=== PATIENT | female | born 1935 | race Caucasian/White ===

== ENCOUNTER 2017-02-18 08:14 | Outpatient (CLI) | payer MEDICARE, OTHER ==
[2017-02-18 12:24] LABS: #Basophils 0.1 thou/uL (0.0-0.2); #Eosinphils 0.7 thou/uL (0.0-0.7); #Lymphocytes 2.2 thou/uL (1.20-3.40); #Monocytes 0.6 thou/uL (0.11-0.59); %Lymphocytes 28.8 % (21.0-51.0); %Monocytes 7.5 % (0.0-10.0); %Neutrophils 52.8 % (42.0-75.0); Hemoglobin 13.7 g/dL (12.0-16.0); Mean Corpuscular HGB CONC 32.1 g/dL (32.0-36.0); Mean Corpuscular Hemoglobin 28.1 pg (27.0-31.0); Mean Corpuscular Volume 87.5 fl (81.0-99.0); Mean Platelet Volume 6.1 fL (7.4-10.4); Platelet Count 313 thou/uL (130-400); Red Blood Cell (RBC) Count 4.87 mill/uL (4.20-5.40); White Blood Cell (WBC) Count 7.6 thou/uL (4.8-10.8)
[2017-02-18 12:45] LABS: ALT (SGPT) 8 U/L (0-55); AST (SGOT) 16 U/L (5-34); Albumin 4.1 g/dL (3.4-4.8); Alkaline Phosphatase 88 U/L (40-150); Anion Gap 14 mmol/L (10-20); BUN (Urea Nitrogen) 19 mg/dL (9.8-20.1); Bilirubin, Direct 0.2 mg/dL (0.1-0.3); Bilirubin, Total 0.5 mg/dL (0.2-1.2); Calc. Creatinine Clearance 0 mL/min (70-130); Calcium 9.7 mg/dL (7.8-10.44); Carbon Dioxide 26 mmol/L (23-31); Chloride 104 mmol/L (98-107); Cholesterol 145 mg/dL (< 200 Desired); Estimated GFR-MDRD 32; Glucose 92 mg/dL (83-110); HDL Cholesterol 48 mg/dL (>60 Neg Risk); LDL Cholesterol, Calculated 67 mg/dL; Potassium 4.8 mmol/L (3.5-5.1); Protein, Total 6.8 g/dL (5.8-8.1); Sodium 139 mmol/L (136-145); Triglycerides 150 mg/dL (Less than 150)
[2017-02-18 12:46] LABS: Hemoglobin A1c 5.3 % (4.0-6.0)
== END 2017-02-18 08:15 ==
LOC: NAVSJIPCSP 08:14
PROVIDERS: ATTEND Nurse Practitioner Family
DX: N28.9 Disorder of kidney and ureter, unspecified (principal); I10 Essential (primary) hypertension; Z86.39 Personal history of other endocrine, nutritional and metabolic disease; Z79.899 Other long term (current) drug therapy
CPT/HCPCS: 36415; 80048; 80061; 80076; 83036; 84443; 85025

== ENCOUNTER 2017-04-29 11:23 | Outpatient (CLI) | payer MEDICARE, OTHER ==
[2017-04-29 13:42] LABS: Hemoglobin 14.1 g/dL (12.0-16.0)
[2017-04-29 13:52] LABS: Anion Gap 18 mmol/L (10-20); BUN (Urea Nitrogen) 23 mg/dL (9.8-20.1); Calc. Creatinine Clearance 0 mL/min (70-130); Calcium 9.9 mg/dL (7.8-10.44); Carbon Dioxide 25 mmol/L (23-31); Chloride 100 mmol/L (98-107); Estimated GFR-MDRD 32; Glucose 81 mg/dL (83-110); Potassium 4.8 mmol/L (3.5-5.1); Sodium 138 mmol/L (136-145)
[2017-04-30 17:59] LABS: Iron 70 ug/dL (50-170); Iron Binding Capacity, Total 311 mcg/dL (265-497)
== END 2017-04-29 11:24 | disposition home or self-care (01) ==
LOC: NAVSJIPCSP 11:23
PROVIDERS: ATTEND Internal Medicine Nephrology
DX: D63.1 Anemia in chronic kidney disease (principal); R53.1 Weakness; R53.82 Chronic fatigue, unspecified; N18.3 Chronic kidney disease, stage 3 (moderate)
CPT/HCPCS: 36415; 80048; 83540; 83550; 85014; 85018

== ENCOUNTER 2017-07-08 09:11 | Outpatient (CLI) | payer MEDICARE, OTHER ==
[2017-07-08 14:15] LABS: #Basophils 0.2 thou/uL (0.0-0.2); #Eosinphils 0.7 thou/uL (0.0-0.7); #Lymphocytes 2.3 thou/uL (1.20-3.40); #Monocytes 0.6 thou/uL (0.11-0.59); #Neutrophils 4.9 thou/uL (1.40-6.50); %Basophils 2.1 % (0.0-1.0); %Eosinophils 8.1 % (0.0-10.0); %Monocytes 7.3 % (0.0-10.0); %Neutrophils 56.5 % (42.0-75.0); Hemoglobin 13.4 g/dL (12.0-16.0); Mean Corpuscular HGB CONC 32.4 g/dL (32.0-36.0); Mean Corpuscular Hemoglobin 28.2 pg (27.0-31.0); Mean Platelet Volume 6.3 fL (7.4-10.4); Platelet Count 322 thou/uL (130-400); RBC Distribution Width 12.8 % (11.5-14.5); Red Blood Cell (RBC) Count 4.77 mill/uL (4.20-5.40); White Blood Cell (WBC) Count 8.7 thou/uL (4.8-10.8)
[2017-07-08 17:56] LABS: ALT (SGPT) 10 U/L (8-55); AST (SGOT) 13 U/L (5-34); Alkaline Phosphatase 98 U/L (40-150); Anion Gap 18 mmol/L (10-20); BUN (Urea Nitrogen) 21 mg/dL (9.8-20.1); Bilirubin, Direct 0.2 mg/dL (0.1-0.3); Bilirubin, Total 0.4 mg/dL (0.2-1.2); Calc. Creatinine Clearance 0 mL/min (70-130); Calcium 9.9 mg/dL (7.8-10.44); Carbon Dioxide 24 mmol/L (23-31); Cardiac Risk 3.5 (Less than 4.5); Chloride 101 mmol/L (98-107); Cholesterol 156 mg/dl (< 200 Desired); Estimated GFR-MDRD 33; Glucose 90 mg/dL (83-110); HDL Cholesterol 45 mg/dL (>60 Neg Risk); LDL Cholesterol, Calculated 75 mg/dL; Potassium 5.2 mmol/L (3.5-5.1); Protein, Total 6.8 g/dL (6.0-8.3); Sodium 138 mmol/L (136-145); Triglycerides 178 mg/dL (Less than 150)
== END 2017-07-08 09:12 | disposition home or self-care (01) ==
LOC: NAVSJIPCSP 09:11
PROVIDERS: ATTEND Family Medicine
DX: C85.90 Non-Hodgkin lymphoma, unspecified, unspecified site (principal); M81.8 Other osteoporosis without current pathological fracture; N28.9 Disorder of kidney and ureter, unspecified; M54.10 Radiculopathy, site unspecified; I10 Essential (primary) hypertension; Z79.899 Other long term (current) drug therapy
CPT/HCPCS: 36415; 80048; 80061; 80076; 84443; 85025

== ENCOUNTER 2018-02-18 17:28 | Inpatient (IN) | payer MEDICARE, OTHER ==
[2018-02-18 17:36] VITALS: BMI 20.5
[2018-02-18] MEDS ORDERED: Ondansetron ODT 4 MG TAB PO PRN ×2 (19:19→19:21)
[2018-02-18] MEDS ORDERED: traMADol HCl 50 MG TAB PO PRN (19:19)
[2018-02-18] MEDS ORDERED: Loperamide HCl 2 MG CAP PO PRN (19:21)
[2018-02-18] MEDS ORDERED: Milk Of Magnesia 30 ML UDCUP PO PRN (19:21)
[2018-02-18] MEDS ORDERED: Guaifenesin DM 100-10/5 ML UDCUP PO PRN (19:21)
[2018-02-18] MEDS: Metoprolol Tartrate 25 MG TAB PO SCH (20:31)
[2018-02-18] MEDS: traMADol HCl 50 MG TAB PO SCH (20:33)
[2018-02-18] MEDS: Acetaminophen 500 MG TAB PO SCH (20:33)
[2018-02-18] MEDS: Apixaban 5 MG TAB PO SCH (20:34)
[2018-02-18] MEDS: Atorvastatin Calcium 10 MG TAB PO SCH (20:35)
[2018-02-18] MEDS: Famotidine 20 MG TAB PO SCH (23:20)
--- NOTE | 2018-02-19 00:35 | HP ---
DATE OF ADMISSION: 02/18/2018 HISTORY OF PRESENT ILLNESS: Ms. 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 She tripped over some type of high chair leg and fell landing on her right hi p. She had a right femoral neck fracture and was transferred to [facility]. She was admitt ed there, found to be in paroxysmal atrial fibrillation, had a consultation by Dr. Andrei Maldonado, and was placed on amiodarone. On 02/16/2018, she had a right hip bipolar hemiarthroplasty. Postoperati vely, she has done very well and was transferred to [facility] today, 02/18/2018, for physical therapy and occupational therapy to increase her strength and stamina. She basically lives at home by herself and she needs to be much more active and able to walk and care for herself before she is discharged. PAST MEDICAL HISTORY: 1. Significant for hypertension. 2. Radiculopathy. 3. Low back pain. 4. Idiopathic generalized osteoporosis. 5. Non-Hodgkin's lymphoma, unspecified site. 6. Insomnia. 7. Anxiety disorder. 8. Chronic kidney disease, stage 3. 9. 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 10. Depression. 11. Some type of spinal cord tumor. PAST SURGICAL HISTORY: 1. 1951, nephrectomy. 2. 1959, appendectomy. 3. 1967, cholecystectomy. 4. 1974, right breast biopsy. 5. 1981, right breast cyst removal. 6. 1983, D and C. 7. 2000, exploratory laparotomy with incisional biopsy of left periaortic retroperitoneal mass. FAMILY HISTORY: Reveals patient's father at age of 48 of [place]. The patient's mother at age 83 of a stroke. The patient states all of her brothers and sisters are . She had 3 brot hers with lung cancer and fourth brother in his 90s from heart failure. The patient has had 1 s ister that at age 25 of leukemia. One sister of CHF and a third sister of old age in her 90s. The patient has 1 alive son and 1 alive daughter. SOCIAL HISTORY: Reveals patient never smoked. She has rarely a glass of wine. She has a cup of cof fee every morning. She works at a daycare center. She is . She has no significant exercise outside of working with the children at the daycare. ALLERGIES: She is allergic to PENICILLIN, which gives her itch. She is allergic to ALEVE, which giv es her kidney issues; and MOTRIN, which gives her kidney issues; and HYDROCODONE, which gives her kid aiden issues, and MORPHINE, which gives her itching. PRESENT MEDICATIONS: Reveal she was transferred over to [facility] on the following medications, which include, 1. Tylenol 1000 mg p.r.n. 3-4 times daily. 2. Ipratropium or DuoNeb scheduled t.i.d. 3. Eliquis 2.5 b.i.d. 4. Lipitor 10 mg at bedtime. 5. Vitamin D3 5000 units daily. 6. Famotidine 20 mg at bedtime. 7. Robitussin-DM p.r.n. 8. Imodium p.r.n. 9. Magnesium hydroxide or milk of magnesia p.r.n. 10. Metoprolol 12.5 mg b.i.d. 11. Ondansetron 4 mg q.6 hours. 12. Sertraline 100 mg daily. 13. Tramadol 50 mg 4 times a day p.r.n. REVIEW OF SYSTEMS: The patient denies any weight loss or weight gain or fever or chills. Denies any change in eyes or hearing. Denies any respiratory problems including cough, cold, congestion, short ness of breath, or wheezing. Denies any chest pain, palpitations, claudication, dyspnea on exertion. GI: The patient denies any nausea, vomiting, diarrhea, constipation, black or bloody or tarry stoo ls. The patient denies any problems. The patient does complain of significant right hip pain, wh ich is much improved after surgery. PHYSICAL EXAMINATION: GENERAL: This is a well-developed, well-nourished, very pleasant, thin white female, in no apparent distress at this time. HEENT: Reveals normocephalic, nontraumatic cranium. Pupils are equally round and reactive. Extraoc ulars intact. Nose and throat are slightly dry. NECK: Supple, without mass, nodes, or bruits. CHEST: Clear to auscultation. No rales, rhonchi, or wheezes are heard. HEART: Reveals a regular rate and rhythm without murmurs, gallops, or rubs. ABDOMEN: Soft, nontender, without organomegaly. Normal bowel sounds are noted. No rebound or guard ing is noted. EXAM: Deferred. EXTREMITIES: Reveal no clubbing, cyanosis, or edema. SKIN: The patient does have an incision on her right hip from bipolar hip surgery. It is not red. It is not having significant drainage. ASSESSMENT: 1. Right hip hemiarthroplasty. 2. Paroxysmal atrial fibrillation. 3. Hypertension. 4. Anxiety/depressive disorder. 5. Osteoporosis. 6. Hyperlipidemia. 7. Vitamin D deficiency. 8. Non-Hodgkin's lymphoma. 9. Chronic kidney disease, stage 3. PLAN: 1. The patient is here for continued pain management. 2. Physical therapy and occupational therapy for rehabilitation of her right hip. 3. Deep venous thrombosis prophylaxis. 4. Decubitus precautions. 5. Stress ulcer prophylaxis. 6. Physical therapy and occupational therapy.
[2018-02-19] MEDS: Acetaminophen 500 MG TAB PO SCH ×4 (03:45→21:16)
[2018-02-19 05:39] LABS: ALT (SGPT) Less than 6 U/L (8-55); AST (SGOT) 22 U/L (5-34); Alkaline Phosphatase 90 U/L (40-150); Anion Gap 13 mmol/L (10-20); BUN (Urea Nitrogen) 21 mg/dL (9.8-20.1); Bilirubin, Total 0.6 mg/dL (0.2-1.2); Calc. Creatinine Clearance 29 mL/min (70-130); Calcium 9.5 mg/dL (7.8-10.44); Carbon Dioxide 24 mmol/L (23-31); Chloride 103 mmol/L (98-107); Estimated GFR-MDRD 39; Globulin 2.7 g/dL (2.4-3.5); Glucose 87 mg/dL (83-110); Potassium 4.5 mmol/L (3.5-5.1); Protein, Total 5.7 g/dL (6.0-8.3); Sodium 135 mmol/L (136-145)
[2018-02-19 07:05] LABS: Hemoglobin 10.5 g/dL (12.0-16.0); Mean Corpuscular HGB CONC 33.1 g/dL (32.0-36.0); Mean Corpuscular Hemoglobin 28.5 pg (27.0-31.0); Mean Corpuscular Volume 86.1 fl (81.0-99.0); Mean Platelet Volume 8.1 fL (7.4-10.4); Platelet Count 191 thou/uL (130-400); RBC Distribution Width 13.6 % (11.5-14.5); Red Blood Cell (RBC) Count 3.69 mill/uL (4.20-5.40); White Blood Cell (WBC) Count 15.2 thou/uL (4.8-10.8)
[2018-02-19 07:07] LABS: Anisocytosis SLIGHT = 6-15 cells (100X) (0-5/hpf); Eosinophils 5 % (0-10); Hypochromia SLIGHT = 6-15 cells (100X) (0-5/hpf); Lymphocytes 23 % (21-51); MDiff Complete? YES; Monocytes 7 % (0-10); Neutrophil 65 % (42-75); PLT Morphology Comment Appears Adequate
[2018-02-19] MEDS: Metoprolol Tartrate 25 MG TAB PO SCH ×2 (08:30→21:16)
[2018-02-19] MEDS: Apixaban 5 MG TAB PO SCH ×2 (08:31→21:17)
[2018-02-19] MEDS: traMADol HCl 50 MG TAB PO SCH ×2 (08:32→21:18)
[2018-02-19] MEDS ORDERED: Famotidine/PF 20 mg/2ml Vial SLOW IVP SCH (09:00)
[2018-02-19] MEDS ORDERED: FLU VACC QS2017-18 36 mo. & older 0.5 ML SYRINGE IM ONE (09:00)
--- NOTE | 2018-02-19 09:31 | PRG ---
DATE OF SERVICE: 02/19/2018 SUBJECTIVE: Ms. Donald is doing well except for pain. Denies any complaints. She is ambulating wit h assistance with therapy. No family at bedside. OBJECTIVE: VITAL SIGNS: She is afebrile, heart rate is 89, respirations 18, oxygen saturation 96% on room air, blood pressure 119/58. CARDIOVASCULAR: S1, S2 plus. RESPIRATORY: Normal vesicular breath sounds. ABDOMEN: Soft, nontender, bowel sounds heard in all quadrants. EXTREMITIES: Without cyanosis or clubbing. Peripheral pulses are palpable. Trace edema right leg, right hip incision with dressing. LABORATORY VALUES: Shows a white blood count of 15.2 with an H&H of 10.5 and 31.7, sodium 135, potas sium 4.5, BUN and creatinine 21 and 1.3. IMPRESSION: 1. Status post fall and right hip fracture, status post open reduction internal fixation. 2. Paroxysmal atrial fibrillation. 3. Hypertension. 4. Osteoporosis. 5. Chronic kidney disease stage 3. 6. Depression and anxiety. 7. Leukocytosis, complicated. PLAN: 1. Incision care. 2. Physical therapy. 3. Pain control. 4. Continue discharge medications. 5. Heart healthy, renal diet. 6. DVT and stress ulcer prophylaxis. 7. Decubitus precautions. 8. Monitor leukocytosis. 9. Discussed with patient in detail. All questions answered.
[2018-02-19 14:35] LABS: Bilirubin Negative (Negative); Blood, Urine Negative (Negative); Clarity Clear (Clear); Glucose, Urine (Dipstick) Negative (Negative); Leukocyte Small (Negative); Nitrite Negative (Negative); Protein, Urine (Dipstick) 30 mg/dL (Neg-Trace); Specific Gravity, Urine 1.025 (1.005-1.030); Urobilinogen 0.2 mg/dL (0.2-1.0); pH, Urine 5.5 (5.0-9.0)
[2018-02-19 15:17] LABS: Bacteria/HPF Rare-Few HPF (None Seen); RBC/HPF 0-3 HPF (0-3); Squamous Epithelial 0-3 HPF (0-3)
[2018-02-19] MEDS: Famotidine 20 MG TAB PO SCH (21:16)
[2018-02-19] MEDS: Atorvastatin Calcium 10 MG TAB PO SCH (21:17)
[2018-02-20] MEDS: Acetaminophen 500 MG TAB PO SCH ×4 (03:22→21:26)
[2018-02-20 05:52] LABS: Anion Gap 11 mmol/L (10-20); BUN (Urea Nitrogen) 19 mg/dL (9.8-20.1); Calc. Creatinine Clearance 34 mL/min (70-130); Calcium 9.1 mg/dL (7.8-10.44); Carbon Dioxide 24 mmol/L (23-31); Chloride 105 mmol/L (98-107); Estimated GFR-MDRD 47; Glucose 83 mg/dL (83-110); Potassium 4.4 mmol/L (3.5-5.1); Sodium 136 mmol/L (136-145)
[2018-02-20 06:05] LABS: Band 4 % (5-11); Eosinophils 10 % (0-10); Hemoglobin 9.6 g/dL (12.0-16.0); Lymphocytes 19 % (21-51); MDiff Complete? YES; Mean Corpuscular Hemoglobin 28.3 pg (27.0-31.0); Mean Corpuscular Volume 85.6 fl (81.0-99.0); Mean Platelet Volume 7.6 fL (7.4-10.4); Metamyelocyte 3 % (0-0); Monocytes 15 % (0-10); Myelocyte 2 % (0-0); Neutrophil 47 % (42-75); PLT Morphology Comment Appears Adequate; Platelet Count 187 thou/uL (130-400); RBC Distribution Width 13.8 % (11.5-14.5); RBC Morphology Normal; White Blood Cell (WBC) Count 10.5 thou/uL (4.8-10.8)
[2018-02-20] MEDS: Apixaban 5 MG TAB PO SCH ×2 (09:29→21:25)
[2018-02-20] MEDS: Metoprolol Tartrate 25 MG TAB PO SCH ×2 (09:30→21:26)
[2018-02-20] MEDS: traMADol HCl 50 MG TAB PO SCH ×2 (09:31→21:25)
--- NOTE | 2018-02-20 15:19 | PRG ---
DATE OF SERVICE: 02/20/2018 SUBJECTIVE: Ms. Donald is doing well. Denies any complaints, resting comfortably. Pain is improved . OBJECTIVE: VITAL SIGNS: She is afebrile. Heart rate is 77, respirations 21, oxygen saturation 91% on room air and blood pressure is 123/61. CARDIOVASCULAR SYSTEM: S1 and S2 plus. RESPIRATORY SYSTEM: Normal vesicular breath sounds. ABDOMEN: Soft and nontender. Bowel sounds heard in all quadrants. EXTREMITIES: Without cyanosis or clubbing. Right hip incision with dressing. LABORATORY VALUES: White count is 10.5, back to normal. Hemoglobin and hematocrit is 9.6 and 29.1. Sodium 136, potassium 4.4, BUN and creatinine are 19 and 1.10. IMPRESSION: 1. Status post fall and right hip fracture, status post open reduction and internal fixation. 2. Resolved leukocytosis. 3. Resolved hyponatremia. 4. Hypertension, well controlled. 5. Paroxysmal atrial fibrillation. 6. Chronic kidney disease, much improved. 7. Depression and anxiety. 8. Deconditioning. PLAN: 1. Continue incision care. 2. Nutritional support. 3. DVT and stress ulcer prophylaxis. 4. Decubitus precautions. 5. Routine laboratory values. 6. Physical therapy.
[2018-02-20] MEDS: Atorvastatin Calcium 10 MG TAB PO SCH (21:26)
[2018-02-20] MEDS: Famotidine 20 MG TAB PO SCH (21:26)
[2018-02-21] MEDS: Acetaminophen 500 MG TAB PO SCH ×4 (03:24→20:47)
[2018-02-21] MEDS: Apixaban 5 MG TAB PO SCH ×2 (09:22→20:47)
[2018-02-21] MEDS: Metoprolol Tartrate 25 MG TAB PO SCH ×2 (09:23→20:47)
[2018-02-21] MEDS: traMADol HCl 50 MG TAB PO SCH ×2 (09:24→20:46)
[2018-02-21] MEDS: Atorvastatin Calcium 10 MG TAB PO SCH (20:47)
[2018-02-21] MEDS: Famotidine 20 MG TAB PO SCH (20:47)
--- NOTE | 2018-02-21 20:55 | PRG ---
DATE OF SERVICE: 02/21/2018 SUBJECTIVE: Ms. Ross is doing well. Denies any complaints, resting comfortably. She states that without any therapy yesterday and today she has hardly any pain. Her niece is in the room. OBJECTIVE: VITAL SIGNS: She is afebrile, heart rate 98, respirations 18, oxygen saturation 96% on room air, blo od pressure 140/72. CARDIOVASCULAR: S1, S2 plus. RESPIRATORY: Vesicular breath sounds. ABDOMEN: Soft, nontender, bowel sounds heard in all quadrants. EXTREMITIES: Without cyanosis or clubbing. Wound culture is negative. Hip incision is healthy. IMPRESSION: 1. Right hip fracture, status post open reduction internal fixation. 2. Hypertension, well controlled. 3. Paroxysmal atrial fibrillation. 4. Depression and anxiety. 5. Improving deconditioning. PLAN: 1. Continue current medications. 2. Nutritional support. 3. DVT and stress ulcer prophylaxis. 4. Decubitus precautions. 5. Physical therapy. 6. Incision care.
[2018-02-22] MEDS: Acetaminophen 500 MG TAB PO SCH ×4 (03:35→21:41)
[2018-02-22] MEDS: traMADol HCl 50 MG TAB PO SCH ×2 (08:19→21:42)
[2018-02-22] MEDS: Metoprolol Tartrate 25 MG TAB PO SCH ×2 (08:20→21:41)
[2018-02-22] MEDS: Apixaban 5 MG TAB PO SCH ×2 (09:02→21:41)
--- NOTE | 2018-02-22 10:18 | PRG ---
DATE OF SERVICE: 02/22/2018 DATE OF ADMISSION: 02/18/2018 HISTORY OF PRESENT ILLNESS: Ms. 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 She had a right femoral neck fracture and was transferred to [facility] where she is in paroxysmal atrial fibrillation and had Dr. Maldonado to see her. She eventually had a right hip bipolar arthroplasty and postoperatively was transferred to [facility] for physical therapy a nd occupational therapy. SUBJECTIVE: GENERAL: The patient states she is doing well and she is walking well. Our goal is to get her home before [place]. VITAL SIGNS: Reveal blood pressure this morning slightly elevated at 153/82, pulse 90-99, respiratio ns 18-20, O2 sat 96%-99% on room air, T-max 98.4. GENERAL: This is a well-developed, well-nourished, very pleasant white female in no apparent distres s at this time. HEENT: Reveals normocephalic, nontraumatic cranium. Pupils are equal, round, and reactive. Extraoc ular movements are intact. Nose and throat are slightly dry. NECK: Supple, without mass, nodes or bruits. CHEST: Clear to auscultation. No rales, rhonchi or wheezes are heard. HEART: Reveals a regular rate and rhythm without murmurs, gallops or rubs. ABDOMEN: Soft and nontender, without organomegaly, normal bowel sounds are noted. No rebound or gua rding is noted. GENITOURINARY: Deferred. EXTREMITIES: Reveal no clubbing, cyanosis or edema. Wound culture is negative. Hip incision still looks good and healing well. IMPRESSION: 1. Right hip fracture, status post open reduction and internal fixation. 2. Hypertension, well controlled. 3. Paroxysmal atrial fibrillation. 4. Idiopathic osteoporosis. 5. Non-Hodgkin's lymphoma. 6. Insomnia. 7. Chronic kidney stage 3 with right nephrectomy due to abscess. PLAN: 1. Continue to monitor the patient's blood pressure closely. 2. Continue physical therapy and occupational therapy. 3. Pain management. 4. Stress ulcer prophylaxis. 5. Decubitus precautions. 6. Deep venous thrombosis prophylaxis. 7. Physical therapy and occupational therapy.
[2018-02-22] MEDS: Famotidine 20 MG TAB PO SCH (21:41)
[2018-02-22] MEDS: Atorvastatin Calcium 10 MG TAB PO SCH (21:42)
[2018-02-23] MEDS: Acetaminophen 500 MG TAB PO SCH ×4 (05:05→21:13)
[2018-02-23] MEDS: Metoprolol Tartrate 25 MG TAB PO SCH ×2 (09:18→21:14)
[2018-02-23] MEDS: traMADol HCl 50 MG TAB PO SCH ×2 (09:19→21:14)
[2018-02-23] MEDS: Apixaban 5 MG TAB PO SCH ×2 (09:19→21:13)
[2018-02-23] MEDS ORDERED: Metoprolol Tartrate 25 MG TAB PO SCH (10:30)
--- NOTE | 2018-02-23 19:17 | PRG ---
DATE OF SERVICE: 02/23/2018 SUBJECTIVE: Ms. 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 Sh mariama had a right femoral neck fracture and was transferred to [facility] where she was found to have paroxysmal atrial fibrillation. Dr. Maldonado saw her, put on amiodarone drip and then switched to Lopressor. She converted. She eventually had a right hip bipolar arthroplasty done and postoper atively was transferred from [facility] for physical therapy and occupational therapy. The patient states she felt weak this morning and her pulse was checked and EKG was done. She was ba ck in atrial fib with rapid ventricular response. We did increase her metoprolol and waiting for yrn t to take effect. She is not symptomatic. OBJECTIVE: VITAL SIGNS: Blood pressure this morning was 107/56 with a pulse of 152, down to 145, down to the 80 s. The respirations were 24, O2 sat was 97% on room air. GENERAL: This is a well-developed, well-nourished, very pleasant, thin white female, in no apparent distress at this time. HEENT: Reveals normocephalic, nontraumatic cranium. Pupils equal, round, and reactive. Extraocular movements intact. Nose and throat are slightly dry. NECK: Supple without mass, nodes, bruits. CHEST: Clear to auscultation. No rales, no rhonchi, no wheezes are heard. HEART: An irregularly irregular rate and rhythm running about 142 at this time. No murmurs, gallops or rubs are noted. ABDOMEN: Soft and nontender without organomegaly. Normal bowel sounds are noted. No rebound or gua rding is noted. GENITOURINARY: Deferred. EXTREMITIES: Reveal no clubbing, cyanosis or edema. SKIN: Wound culture was negative. Hip incision still looks good. IMPRESSION: 1. Right hip fracture, status post open reduction internal fixation. 2. Hypertension, well controlled. 3. Paroxysmal atrial fibrillation and rapid ventricular response this morning. 4. Idiopathic Osteoporosis. 5. Non-Hodgkin's lymphoma. 6. Insomnia. 7. Chronic kidney disease stage 3 with a right nephrectomy due to abscess. PLAN: 1. Continue to monitor the patient's blood pressure closely. 2. Monitor the patient's rate make sure she becomes rate controlled. 3. Stress ulcer prophylaxis. 4. Decubitus precautions. 5. Deep venous thrombosis prophylaxis, on Eliquis. 6. Pain management. 7. Continue physical therapy and occupational therapy. 8. We increased her metoprolol to 50 mg b.i.d.
[2018-02-23] MEDS: Atorvastatin Calcium 10 MG TAB PO SCH (21:13)
[2018-02-23] MEDS: Famotidine 20 MG TAB PO SCH (21:15)
[2018-02-24] MEDS: Acetaminophen 500 MG TAB PO SCH ×4 (05:25→21:37)
[2018-02-24 05:35] LABS: Hemoglobin 9.8 g/dL (12.0-16.0); Platelet Count 336 thou/uL (130-400)
[2018-02-24] MEDS: Metoprolol Tartrate 25 MG TAB PO SCH ×2 (08:27→21:37)
[2018-02-24] MEDS: traMADol HCl 50 MG TAB PO SCH ×2 (08:28→21:35)
[2018-02-24] MEDS: Apixaban 5 MG TAB PO SCH ×2 (08:28→21:37)
[2018-02-24] MEDS: Atorvastatin Calcium 10 MG TAB PO SCH (21:37)
[2018-02-24] MEDS: Famotidine 20 MG TAB PO SCH (21:37)
--- NOTE | 2018-02-24 22:58 | PRG ---
DATE OF SERVICE: 02/24/2018 HISTORY OF PRESENT ILLNESS: Ms. Donald is a very pleasant 82-year-old white female who fell at her d [employer] job. She had a right femoral neck fracture and was transferred to [facility], where she was found to be paroxysmal atrial fibrillation. Dr. Maldonado saw her and put on amiodarone drip and switch her to Lopressor and she converted. She eventually had a right hip bipolar arthroplasty d one postoperatively, who was transferred to [facility] for PT and OT. Patient states she feels much better. Pulses checked is in the 80s most of the time. She did have a rapid RVR and she was noted to be in atrial fibrillation with rapid ventricular response. Yesterday , we did increase her metoprolol. She is not symptomatic at all. PHYSICAL EXAMINATION: VITAL SIGNS: Today reveal blood pressure is 166/78, pulse 91-93, respirations 23-18, O2 sat 96% on r oom air, T-max 98.6. GENERAL: This is a well-developed, well-nourished, very thin white female in no apparent distress at this time. HEENT: Reveals normocephalic, nontraumatic cranium. Pupils equal, round, and reactive. Extraocular movements intact. Nose and throat are moist. NECK: Supple, without masses or bruits. CHEST: Clear to auscultation. No rales or rhonchi. No wheezes are heard. CARDIOVASCULAR: Reveals a regular rate and rhythm this afternoon at 92. ABDOMEN: Soft, nontender without organomegaly. Normal bowel sounds are noted. No rebound or guardi ng is noted. : Deferred. EXTREMITIES: Reveal no clubbing, cyanosis, or edema. IMPRESSION: 1. Right hip fracture, status post open reduction and internal fixation. 2. Hypertension. 3. Paroxysmal atrial fibrillation and goes in and out of atrial fibrillation. 4. Idiopathic osteoporosis. 5. Non-Hodgkin's lymphoma. 6. Insomnia. 7. Chronic kidney disease, stage 3 with right nephrectomy due to abscess. PLAN: 1. Continue to monitor the patient's rate. 2. Continue to monitor the patient's blood pressure. 3. Monitor the patient's stress ulcer. 4. Decubitus precautions. 5. Deep venous thrombosis prophylaxis on Eliquis. 6. Pain management. 7. Continue PT and OT. 8. Continue metoprolol 50 b.i.d.
[2018-02-25] MEDS: Acetaminophen 500 MG TAB PO SCH ×4 (03:52→22:46)
[2018-02-25] MEDS: Apixaban 5 MG TAB PO SCH ×2 (09:37→22:47)
[2018-02-25] MEDS: Metoprolol Tartrate 25 MG TAB PO SCH ×2 (09:37→22:46)
[2018-02-25] MEDS: traMADol HCl 50 MG TAB PO SCH ×2 (09:38→22:46)
--- NOTE | 2018-02-25 22:01 | PRG ---
DATE OF SERVICE: 02/25/2018 HISTORY OF PRESENT ILLNESS: Ms. 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 She had a right femoral neck fracture and was transferred to [facility] where she had an ORIF done with a right hip bipolar arthroplasty. Postoperatively, she did we ll. Preoperatively, she ended up having paroxysmal atrial fibrillation and saw Dr. Maldonado. The patient states she is doing better, but she still has quite a bit of problem with her balance and she thinks it may have been from her chemotherapy when she had a non-Hodgkin's lymphoma, otherwise, she is walking, but unsteadily. PHYSICAL EXAMINATION: VITAL SIGNS: Today reveal blood pressure 143/71, pulse 93, respirations 24, O2 sat 96% on room air, T-max 95.6. GENERAL: This is a well-developed, well-nourished, very pleasant, thin white female in no apparent d istress at this time. HEENT: Reveals normocephalic, nontraumatic cranium. Pupils are equally round and reactive. Extraoc ular movements are intact. Nose and throat are slightly dry. NECK: Supple, without mass, nodes or bruits. LUNGS: Chest is clear to auscultation. No rales, rhonchi or wheezes are heard. No cough is noted. HEART: Reveals a regular rate and rhythm without murmurs, gallops or rubs. The rate is low 90-92. ABDOMEN: Soft, nontender, without organomegaly, normal bowel sounds are noted. No rebound or guardi ng is noted. : Deferred. EXTREMITIES: Reveal no clubbing, cyanosis or edema. IMPRESSION: 1. Right hip fracture, status post open reduction internal fixation. 2. Hypertension. 3. Paroxysmal atrial fibrillation, presently in normal sinus. 4. Idiopathic osteoporosis. 5. Non-Hodgkin's lymphoma. 6. Insomnia. 7. Chronic kidney disease stage 3. 8. Generalized weakness. 9. Continued weakness on that right hip. PLAN: 1. Continue to monitor the patient's heart rate. 2. Monitor the patient's blood pressure. 3. Stress ulcer prophylaxis. 4. Decubitus precautions. 5. DVT prophylaxis, on Eliquis. 6. Pain management. 7. Continue physical therapy and occupational therapy. 8. Continue metoprolol 50 mg b.i.d.
[2018-02-25] MEDS: Famotidine 20 MG TAB PO SCH (22:46)
[2018-02-25] MEDS: Atorvastatin Calcium 10 MG TAB PO SCH (22:47)
[2018-02-26] MEDS: Acetaminophen 500 MG TAB PO SCH ×4 (03:19→21:29)
[2018-02-26 06:26] LABS: Hemoglobin 9.5 g/dL (12.0-16.0); Platelet Count 345 thou/uL (130-400)
[2018-02-26] MEDS: Metoprolol Tartrate 25 MG TAB PO SCH ×2 (09:00→21:30)
[2018-02-26] MEDS: Apixaban 5 MG TAB PO SCH ×2 (09:01→21:33)
[2018-02-26] MEDS: traMADol HCl 50 MG TAB PO SCH ×2 (09:01→21:34)
[2018-02-26 13:06] LABS: #Basophils 0.1 thou/uL (0.0-0.2); #Eosinphils 0.7 thou/uL (0.0-0.7); #Lymphocytes 2.6 thou/uL (1.20-3.40); #Monocytes 1.4 thou/uL (0.11-0.59); #Neutrophils 8.9 thou/uL (1.40-6.50); %Basophils 1.1 % (0.0-1.0); %Eosinophils 5.1 % (0.0-10.0); %Lymphocytes 18.8 % (21.0-51.0); %Neutrophils 65.1 % (42.0-75.0); Hemoglobin 11.1 g/dL (12.0-16.0); Mean Corpuscular HGB CONC 33.5 g/dL (32.0-36.0); Mean Corpuscular Hemoglobin 28.4 pg (27.0-31.0); Mean Corpuscular Volume 84.7 fl (81.0-99.0); Mean Platelet Volume 5.9 fL (7.4-10.4); Platelet Count 426 thou/uL (130-400); RBC Distribution Width 13.6 % (11.5-14.5); Red Blood Cell (RBC) Count 3.92 mill/uL (4.20-5.40); White Blood Cell (WBC) Count 13.6 thou/uL (4.8-10.8)
[2018-02-26] MEDS: Famotidine 20 MG TAB PO SCH (21:32)
[2018-02-26] MEDS: Atorvastatin Calcium 10 MG TAB PO SCH (21:32)
--- NOTE | 2018-02-26 23:03 | PRG ---
DATE OF SERVICE: 02/26/2018 DATE OF ADMISSION: 02/18/2018 SUBJECTIVE: Ms. 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 She had a right femoral neck fracture and was transferred to [facility] where she had OR IF done with the bipolar arthroplasty on the right hip. Postoperatively, she did well and she unfort unately had atrial fibrillation. Preoperatively, she saw Dr. Maldonado who placed on her amiodarone d rip and switched her over to Lopressor. Patient states she is feeling better, but her incision looks a little red. Unfortunately, she took a shower, then took the bandage off and it stayed wet for 2 days. It is looking much better this afte rnoon. We will continue to follow her closely. Her labs today were within normal limits. Vital signs reveal blood pressure this morning was 137/67, pulse 76 and 99, respirations 18-22, O2 sa t 96% on room air, T-max is 97.4. LABORATORY DATA: 1. Reveals white count of 13,600, we will repeat that tomorrow morning. 2. Hemoglobin is 11.1, hematocrit 33.2, and platelet count is 426,000. 3. Electrolytes were not done. Creatinine is 1.18. GFR is noted to be 44. PHYSICAL EXAMINATION: GENERAL: This is a well-developed, well-nourished, thin white female in no apparent distress at this time. HEENT: Reveals normocephalic, nontraumatic cranium. Pupils equally round and reactive. Extraocular movements intact. Nose and throat are slightly dry. NECK: Supple without masses, nodes, or bruits. LUNGS: Chest is clear to auscultation. No rales, no rhonchi, no wheezes heard. CARDIOVASCULAR: Patient has had paroxysmal atrial fibrillation and now it is regular rate and rhythm without murmurs, gallops, or rubs. Rate is in the 80s and 90s. ABDOMEN: Soft, nontender without organomegaly, normal bowel sounds are noted. No rebound or guardin g is noted. : Deferred. EXTREMITIES: Reveal no clubbing, cyanosis, or edema. IMPRESSION: 1. Status post right hip with status post open reduction and internal fixation. 2. Hypertension. 3. Paroxysmal atrial fibrillation, presently normal sinus. 4. Idiopathic osteoporosis. 5. Non-Hodgkin's lymphoma. 6. Insomnia. 7. Chronic kidney disease, stage 3. 8. Generalized weakness. 9. Weakness of the hip. PLAN: 1. Continue to monitor the patient's heart rate. 2. Monitor the patient's blood pressure closely. 3. Stress ulcer prophylaxis. 4. Decubitus precautions. 5. Deep venous thrombosis prophylaxis on Eliquis. 6. Pain management. 7. Continue PT and OT. 8. Metoprolol 50 mg b.i.d.
[2018-02-27] MEDS: Acetaminophen 500 MG TAB PO SCH ×4 (03:16→21:30)
[2018-02-27] MEDS: Apixaban 5 MG TAB PO SCH ×2 (08:46→21:29)
[2018-02-27] MEDS: Metoprolol Tartrate 25 MG TAB PO SCH ×2 (08:47→21:29)
[2018-02-27] MEDS: traMADol HCl 50 MG TAB PO SCH ×2 (08:47→21:29)
--- NOTE | 2018-02-27 17:10 | PRG ---
DATE OF ADMISSION: 02/18/2018 DATE OF SERVICE: 02/27/2018 HISTORY OF PRESENT ILLNESS: Ms. 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 She had a resultant right femoral neck fracture and was transferr ed to [facility] where ORIF was done with bipolar arthroplasty of the right hip by Dr. Ana shrestha. Postoperatively, she did well and was transferred here for continued care. Prior to her surgery, the patient actually went into atrial fibrillation, was seen by hari Monique on amiodarone drip and switched to Lopressor. After the patient was transferred here, she returned to an atrial fibrillation rhythm and we increase d her metoprolol to 50 mg b.i.d. She has done well since then. SUBJECTIVE: The patient states she has no complaints today. She is doing well. OBJECTIVE: VITAL SIGNS: Blood pressure this morning was 140/68, pulse 76, respirations 18-22, O2 sat 96% to 97% on room air. T-max 96.2. GENERAL: This is a well-developed, well-nourished, very pleasant, thin white female, in no apparent distress at this time. HEENT: Reveals normocephalic, nontraumatic cranium. Pupils are equally round and reactive. Extraoc ular movements are intact. Nose and throat are slightly dry. NECK: Supple, without masses, nodes, bruits. CHEST: Clear to auscultation. No rales, rhonchi, wheezes or cough is heard. CARDIOVASCULAR: Reveals a regular rate and rhythm without murmurs, gallops or rubs. ABDOMEN: Scaphoid, soft, nontender, without organomegaly, normal bowel sounds are noted. No rebound or guarding is noted. : Deferred. EXTREMITIES: Reveal no clubbing, cyanosis or edema. The right hip had some redness seen yesterday b ecause she left her bandage on wet. It seems to be drying out and doing much better. IMPRESSION: 1. Status post right hip with status post open reduction and internal fixation. 2. Hypertension. 3. Paroxysmal atrial fibrillation. 4. Idiopathic osteoporosis. 5. Non-Hodgkin's lymphoma. 6. Insomnia. 7. Chronic kidney disease, stage 3. 8. Generalized weakness. PLAN: 1. Continue to monitor the patient's heart rate. 2. Monitor the patient for signs and symptoms of atrial fibrillation with rapid ventricular response . 3. Monitor the patient's blood pressure closely. 4. Monitor the patient's renal status. 5. Physical therapy and occupational therapy. 6. Continue to monitor the patient as needed.
[2018-02-27] MEDS: Atorvastatin Calcium 10 MG TAB PO SCH (21:29)
[2018-02-27] MEDS: Famotidine 20 MG TAB PO SCH (21:29)
[2018-02-28] MEDS: Acetaminophen 500 MG TAB PO SCH ×4 (04:41→21:01)
[2018-02-28 05:38] LABS: Hemoglobin 10.4 g/dL (12.0-16.0); Platelet Count 437 thou/uL (130-400)
[2018-02-28] MEDS: Apixaban 5 MG TAB PO SCH ×2 (08:50→21:02)
[2018-02-28] MEDS: Metoprolol Tartrate 25 MG TAB PO SCH ×2 (08:52→21:02)
[2018-02-28] MEDS: traMADol HCl 50 MG TAB PO SCH ×2 (08:52→21:02)
[2018-02-28] MEDS: Atorvastatin Calcium 10 MG TAB PO SCH (21:01)
[2018-02-28] MEDS: Famotidine 20 MG TAB PO SCH (21:02)
--- NOTE | 2018-02-28 22:14 | PRG ---
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 She had a resultant right femoral neck fracture. She was transferred to [facility], where ORIF was done with bipolar arthroplasty of the right hip by Dr. Hodge. Postoperatively , she did very well, has been transferred to [facility] for continued physical therapy and occ upational therapy to increase her strength and stamina since she lives by herself and has to be indep endent. Unfortunately, prior to surgery, the patient actually went into atrial fibrillation, was seen by Dr. Maldonado, and placed on amiodarone drip. She eventually was switched over to Lopressor. When she ar rived to [facility], she also had an issue with atrial fibrillation with RVR and was given a h igher dose of metoprolol. She has tolerated that very well. PHYSICAL EXAMINATION: VITAL SIGNS: Today revealed blood pressure 135/70, pulse 76-87, respirations 18, O2 sat 96%-97% on r oom air, T-max 96.8. GENERAL: This is a well-developed, well-nourished, thin white female in no apparent distress at this time. HEENT: Reveals normocephalic, nontraumatic cranium. Pupils equal, round, and reactive. Extraocular movements intact. Nose and throat are slightly dry. NECK: Supple without masses, nodes, or bruits. CHEST: Clear to auscultation. No rales, rhonchi, or wheezes are heard. CARDIOVASCULAR: Reveals a regular rate and rhythm without murmurs, gallops or rubs. ABDOMEN: Soft and nontender without organomegaly. Normal bowel sounds are noted. No rebound or gua rding is noted. : Deferred. EXTREMITIES: Revealed no clubbing, cyanosis, or edema. Right hip has decreasing redness and increas ing strength. IMPRESSION: 1. Status post right hip open reduction internal fixation. 2. Hypertension. 3. Paroxysmal atrial fibrillation. 4. Idiopathic osteoporosis. 5. Non-Hodgkin lymphoma. 6. Insomnia. 7. Chronic kidney disease, stage 3. 8. Generalized weakness. PLAN: 1. Continue to monitor the patient's heart. 2. We will monitor the patient for signs and symptoms of atrial fibrillation with rapid ventricular response. 3. Monitor the patient's blood pressure closely. 4. Monitor the patient's renal status. 5. PT and OT. 6. Continue to monitor the patient as needed.
[2018-03-01] MEDS: Acetaminophen 500 MG TAB PO SCH ×4 (04:24→20:55)
[2018-03-01] MEDS: Metoprolol Tartrate 25 MG TAB PO SCH (08:17)
[2018-03-01] MEDS: traMADol HCl 50 MG TAB PO SCH ×2 (08:18→20:54)
[2018-03-01] MEDS: Apixaban 5 MG TAB PO SCH ×2 (08:18→20:55)
--- NOTE | 2018-03-01 09:59 | PRG ---
DATE OF SERVICE: 03/01/2018 DATE OF ADMISSION: 02/18/2018 HISTORY OF PRESENT ILLNESS: Ms. 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 She tripped over something and fell and had a resultant right femoral neck fr acture. She was transferred to [facility] where Dr. Hodge did an ORIF bipolar arthropla sty. Postoperatively, she did very well and was transferred to [facility] for physic al therapy and occupational therapy to increase her strength and her stamina. SUBJECTIVE: The patient states she is doing well except she did not sleep very well last night. She is a little tired this morning. Otherwise, she is doing well. Her vital signs reveal blood pressure has been a little bit elevated again. We will increase her met oprolol from 25 mg to 50 mg b.i.d. PHYSICAL EXAMINATION: VITAL SIGNS: This morning reveal blood pressure 166/78, pulse 91-92, respirations 18-23, O2 sat 95%- 96%. GENERAL: This is a well-developed, well-nourished, thin white female in no apparent distress at this time. HEENT: Reveals normocephalic, nontraumatic cranium. Pupils are equally round and reactive. Extraoc ular movements are intact. Nose and throat are slightly dry. NECK: Supple, without mass, nodes, bruits. CHEST: Clear to auscultation. No rales, rhonchi or wheezes are heard. HEART: Reveals a regular rate and rhythm without murmurs, gallops or rubs. ABDOMEN: Soft and nontender, without organomegaly, normal bowel sounds are noted. No rebound or gua rding is noted. GENITOURINARY: Deferred. EXTREMITIES: Reveal no clubbing, cyanosis or edema. Right hip has decreasing redness. It is drying out and looking well. IMPRESSION: 1. Status post open reduction and internal fixation of the right hip. 2. Hypertension. 3. Paroxysmal atrial fibrillation. 4. Idiopathic osteoporosis. 5. Non-Hodgkin's lymphoma. 6. Insomnia. 7. Chronic kidney disease stage 3. 8. Generalized weakness. PLAN: 1. Continue to monitor the patient's heart rate. 2. Monitor the patient's blood pressure closely. 3. Monitor the patient's renal status. 4. Deep venous thrombosis prophylaxis. 5. Stress ulcer prophylaxis. 6. Decubitus precautions. 7. Physical therapy and occupational therapy.
[2018-03-01] MEDS: Metoprolol Tartrate 50 MG TAB PO SCH (20:53)
[2018-03-01] MEDS: Famotidine 20 MG TAB PO SCH (20:54)
[2018-03-01] MEDS: Atorvastatin Calcium 10 MG TAB PO SCH (20:55)
[2018-03-02] MEDS: Acetaminophen 500 MG TAB PO SCH ×2 (03:47→08:26)
[2018-03-02 05:45] LABS: Hemoglobin 10.1 g/dL (12.0-16.0); Platelet Count 474 thou/uL (130-400)
[2018-03-02 07:12] VITALS: BP 155/75; TEMP 98
[2018-03-02] MEDS: Metoprolol Tartrate 50 MG TAB PO SCH (08:27)
[2018-03-02] MEDS: traMADol HCl 50 MG TAB PO SCH (08:27)
[2018-03-02] MEDS: Apixaban 5 MG TAB PO SCH (08:27)
--- NOTE | 2018-03-02 10:14 | DIS ---
HISTORY: Ms. 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 She fell and had a resultant right femoral neck fracture. She was transfer red to [facility] where Dr. Nic Hodge did an ORIF bipolar arthroplasty. Postoperative ly, she did very well. Unfortunately, she did have some atrial fib and had to be seen by Dr. Tan/ Dr. Maldonado. She was started on amiodarone drip and switched over to oral Lopressor. She has done very well. She was transferred to [facility] for physical therapy and occupational therapy. SUBJECTIVE: The patient has actually done very well, she has reached maximum medical benefit. She i s walking well. She will be going to stay with family members. She is to be discharged today. VITAL SIGNS: Vital signs today reveal blood pressure last night 138/62, this morning 155/75, pulse 7 8-99, respirations 18-22, O2 sat 96% on room air, T-max 98.6. PHYSICAL EXAMINATION: GENERAL: This is a well-developed, well-nourished, very pleasant white female in no apparent distres s at this time. HEENT: Reveals normocephalic, nontraumatic cranium. Pupils are equally round and reactive. Extraoc ular movements intact. Nose and throat are slightly dry. NECK: Supple, without mass, nodes or bruits. CHEST: Clear to auscultation. No rales, no rhonchi, no wheezes and no cough is heard today. HEART: Regular rate and rhythm, which is rate controlled. Cannot tell today if she has atrial fibri llation. No gallops, murmurs, or rubs are noted. ABDOMEN: Soft, nontender, without organomegaly, normal bowel sounds are noted. No rebound or guardi ng is noted. GENITOURINARY: Deferred. EXTREMITIES: Reveal no clubbing, cyanosis or edema. Right hip continues to look good with decreased redness, drying out looking well. IMPRESSION: 1. Status post open reduction internal fixation of fractured right hip. 2. Hypertension. 3. Paroxysmal atrial fibrillation on Eliquis. 4. Idiopathic Osteoporosis. 5. Non-Hodgkin's lymphoma. 6. Insomnia. 7. Chronic kidney disease stage 3. 8. Generalized weakness. PLAN: 1. The patient to be discharged today. 2. Continue to monitor the patient's blood pressure closely. 3. Monitor the patient's renal status. 4. Monitor the patient's heart rate. 5. DVT prophylaxis with Eliquis. 6. Stress ulcer prophylaxis. 7. Decubitus precautions. 8. Physical therapy and occupational therapy. 9. The patient has an appointment with Dr. Nic Hodge tomorrow. 10. The patient has an appointment with Dr. Andrei Maldonado tomorrow. 11. The patient will see me in a week or two. DISCHARGE MEDICATIONS: 1. Acetaminophen 500 mg 1-2 q.i.d., not to exceed 3000 mg daily. 2. Apixaban 2.5 mg b.i.d. 3. Metoprolol 50 mg b.i.d. 4. Atorvastatin 10 mg at bedtime. 5. Sertraline 100 mg daily. 6. Vitamin D3 5000 units daily. 7. Famotidine 20 mg at bedtime. 8. Milk of Magnesia p.r.n. 9. Aldosterone p.r.n. 10. Tramadol. The patient may or may not need tramadol. If she needs that we will have to send it through the office since it is a triplicate. The patient is to see me in a week or two.
== END 2018-03-02 12:30 | disposition home health service (06) | DRG 560 ==
LOC: NAV ACUTE 17:28
PROVIDERS: ADMIT Family Medicine; ATTEND Family Medicine
DX: S72.001D Fracture of unspecified part of neck of right femur, subsequent encounter for closed fracture with routine healing (principal); C85.90 Non-Hodgkin lymphoma, unspecified, unspecified site; E87.1 Hypo-osmolality and hyponatremia; I48.0 Paroxysmal atrial fibrillation; N18.3 Chronic kidney disease, stage 3 (moderate); F32.9 Major depressive disorder, single episode, unspecified; I12.9 Hypertensive chronic kidney disease with stage 1 through stage 4 chronic kidney disease, or unspecified chronic kidney disease; Z96.641 Presence of right artificial hip joint; M81.8 Other osteoporosis without current pathological fracture; R53.1 Weakness; F41.9 Anxiety disorder, unspecified; E78.5 Hyperlipidemia, unspecified; E55.9 Vitamin D deficiency, unspecified; G47.00 Insomnia, unspecified; Z92.21 Personal history of antineoplastic chemotherapy; Z79.01 Long term (current) use of anticoagulants; Z79.899 Other long term (current) drug therapy; Z90.5 Acquired absence of kidney; W01.0XXD Fall on same level from slipping, tripping and stumbling without subsequent striking against object, subsequent encounter; D72.829 Elevated white blood cell count, unspecified
CPT/HCPCS: 36415; 80048; 80053; 81001; 82565; 85014; 85018; 85025; 85049; 87070; 87205; 94640; J7620

== ENCOUNTER 2018-09-14 14:10 | Outpatient (CLI) | payer MEDICARE, OTHER ==
[2018-09-14 14:21] LABS: #Basophils 0.2 thou/uL (0.0-0.2); #Eosinphils 0.2 thou/uL (0.0-0.7); #Lymphocytes 2.1 thou/uL (1.20-3.40); #Monocytes 1.2 thou/uL (0.11-0.59); #Neutrophils 14.4 thou/uL (1.40-6.50); %Basophils 0.9 % (0.0-1.0); %Eosinophils 1.4 % (0.0-10.0); %Lymphocytes 11.5 % (21.0-51.0); %Monocytes 6.5 % (0.0-10.0); %Neutrophils 79.8 % (42.0-75.0); Hemoglobin 14.2 g/dL (12.0-16.0); Mean Corpuscular HGB CONC 33.1 g/dL (32.0-36.0); Mean Corpuscular Hemoglobin 28.5 pg (27.0-31.0); Mean Corpuscular Volume 85.9 fL (78.0-98.0); Mean Platelet Volume 6.2 fL (7.4-10.4); Platelet Count 376 thou/uL (130-400); RBC Distribution Width 13.7 % (11.5-14.5); Red Blood Cell (RBC) Count 4.99 mill/uL (4.20-5.40); White Blood Cell (WBC) Count 18.1 thou/uL (4.8-10.8)
[2018-09-14 14:26] LABS: Bilirubin Negative (Negative); Blood, Urine Trace (Negative); Glucose, Urine (Dipstick) Negative (Negative); Leukocyte Trace (Negative); Nitrite Negative (Negative); Protein, Urine (Dipstick) 100 mg/dL (Neg-Trace); Specific Gravity, Urine 1.025 (1.005-1.030); Urobilinogen 0.2 mg/dL (0.2-1.0); pH, Urine 6.5 (5.0-9.0)
[2018-09-14 14:32] LABS: ALT (SGPT) 17 U/L (8-55); AST (SGOT) 23 U/L (5-34); Albumin 4.2 g/dL (3.4-4.8); Alkaline Phosphatase 87 U/L (40-150); Anion Gap 16 mmol/L (10-20); BUN (Urea Nitrogen) 25 mg/dL (9.8-20.1); Bilirubin, Total 0.7 mg/dL (0.2-1.2); Calc. Creatinine Clearance 0 mL/min (70-130); Calcium 9.8 mg/dL (7.8-10.44); Carbon Dioxide 25 mmol/L (23-31); Chloride 95 mmol/L (98-107); Estimated GFR-MDRD 21; Globulin 2.9 g/dL (2.4-3.5); Glucose 112 mg/dL (83-110); Potassium 4.2 mmol/L (3.5-5.1); Protein, Total 7.1 g/dL (6.0-8.3); Sodium 132 mmol/L (136-145)
[2018-09-14 15:08] LABS: Bacteria/HPF 1+ HPF (None Seen); Hyaline Casts/LPF 4-6 HYALINE CAST LPF (0-3 Hyaline); RBC/HPF 0-3 HPF (0-3); Transitional Epithelial 0-3 HPF (0-3)
== END 2018-09-14 14:11 | disposition home or self-care (01) ==
LOC: NAVSJIPCSP 14:10
PROVIDERS: ATTEND Family Medicine
DX: R55 Syncope and collapse (principal)
CPT/HCPCS: 36415; 80053; 81003; 81015; 85025; 87086

== ENCOUNTER 2020-07-10 18:42 | Inpatient (IN) | payer MEDICARE, OTHER ==
[2020-07-10] MEDS ORDERED: Senokot S 8.6-50 MG TAB PO PRN (20:36)
[2020-07-10] MEDS ORDERED: Acetaminophen 325 MG TAB PO PRN (20:36)
[2020-07-10] MEDS ORDERED: Cyclobenzaprine 10 MG TAB PO PRN (20:42)
--- NOTE | 2020-07-10 20:54 | PDOC.BPN ---
- Labs Status: lab reviewed by me - Vital signs BP: [] HR: [] RR: [] Tmax: [] Pox: []% on [] Wt: []
[2020-07-10] MEDS: Atorvastatin Calcium 10 MG TAB PO SCH (21:47)
[2020-07-10] MEDS: Apixaban 2.5 MG TAB PO SCH (21:47)
[2020-07-10] MEDS: Metoprolol Tartrate 50 MG TAB PO SCH (21:47)
[2020-07-10] MEDS: Acetaminophen 325 MG TAB PO SCH (23:11)
[2020-07-11] MEDS: Acetaminophen 325 MG TAB PO SCH ×3 (05:15→17:39)
[2020-07-11 06:21] LABS: ALT (SGPT) 8 U/L (8-55); AST (SGOT) 53 U/L (5-34); Albumin 2.8 g/dL (3.4-4.8); Alkaline Phosphatase 55 U/L (40-110); Anion Gap 13 mmol/L (10-20); BUN (Urea Nitrogen) 18 mg/dL (9.8-20.1); Bilirubin, Total 0.7 mg/dL (0.2-1.2); Calc. Creatinine Clearance 34 mL/min (70-130); Calcium 8.8 mg/dL (7.8-10.44); Carbon Dioxide 23 mmol/L (23-31); Chloride 98 mmol/L (98-107); Estimated GFR-MDRD 44; Globulin 2.4 g/dL (2.4-3.5); Glucose 87 mg/dL (83-110); Potassium 4.4 mmol/L (3.5-5.1); Protein, Total 5.2 g/dL (6.0-8.3); Sodium 130 mmol/L (136-145)
[2020-07-11 06:43] LABS: Anisocytosis SLIGHT = 6-15 cells (100X) (0-5/hpf); Band 3 % (5-11); Eosinophils 1 % (0-10); Hemoglobin 7.7 g/dL (12.0-16.0); Hypochromia SLIGHT = 6-15 cells (100X) (0-5/hpf); Lymphocytes 18 % (21-51); MDiff Complete? YES; Mean Corpuscular HGB CONC 32.8 g/dL (32.0-36.0); Mean Corpuscular Hemoglobin 29.5 pg (27.0-31.0); Mean Corpuscular Volume 89.9 fL (78.0-98.0); Monocytes 13 % (0-10); Neutrophil 65 % (42-75); Platelet Count 284 thou/uL (130-400); Platelet Morphology Comment Appears Adequate; RBC Distribution Width 14.3 % (11.5-14.5); Red Blood Cell (RBC) Count 2.62 mill/uL (4.20-5.40)
[2020-07-11] MEDS: Ferrous Sulfate 325 MG TAB PO SCH ×2 (08:50→17:40)
[2020-07-11] MEDS: Metoprolol Tartrate 50 MG TAB PO SCH ×2 (08:50→20:25)
[2020-07-11] MEDS: Cholecalciferol 1,000 UNITS (25 MCG) TAB PO SCH (08:50)
[2020-07-11] MEDS: Apixaban 2.5 MG TAB PO SCH ×2 (08:50→20:24)
[2020-07-11] MEDS: Famotidine 20 MG TAB PO SCH (08:50)
[2020-07-11] MEDS: Polyethylene Glycol 3350 17 GM Packet PO SCH (08:51)
[2020-07-11] MEDS: traMADol HCl 50 MG TAB PO PRN (20:24)
[2020-07-11] MEDS: Atorvastatin Calcium 10 MG TAB PO SCH (20:25)
--- NOTE | 2020-07-11 23:35 | HP ---
HISTORY OF PRESENT ILLNESS: Ms. Donald is a pleasant 84-year-old white female, who fell last in her home. She had a resultant right-sided femoral shaft fracture. Dr. Huitron took her to the surgical suite and did a long compression sideplate and multiple screws and wires transfixing the proximal shaft fracture adjacent to the metallic stem alignment. It was a periprostatic fracture. Postoperatively, she actually did very well, was transferred to [facility] yesterday evening late for physical therapy, occupational therapy and pain management. PAST MEDICAL HISTORY: Significant for: 1. Hypertension. 2. Radiculopathy. 3. Low back pain. 4. Adult idiopathic generalized osteoporosis. 5. Non-Hodgkin's lymphoma followed by Dr. Perez. 6. Chronic kidney disease, stage 3 since 1999 due to unilateral kidney. 7. 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 8. Depression. 9. Disorder of the skin and subcutaneous tissue. 10. Edema. 11. Tinnitus. 12. Headache. PAST SURGICAL HISTORY: 1. Nephrectomy in 1951. 2. Appendectomy in 1959. 3. Cholecystectomy in 1967. 4. Right breast biopsy in 1974. 5. Cyst removed, right breast in 1981. 6. D and C in 1983. 7. Laparotomy with incisional biopsy, left periaortic retroperitoneal mass in 2000. 8. Total right hip done in January 2018. PRESENT MEDICATIONS: Reveal the patient presently is on the following medications, which include: 1. Tylenol 650 q.6 hours p.r.n. 2. Apixaban 2.5 mg b.i.d. 3. Lipitor 10 mg at bedtime. 4. Vitamin D3 5000 units daily. 5. Flexeril 5 mg p.o. t.i.d. p.r.n. muscle spasm. 6. Pepcid 20 mg daily. 7. Ferrous sulfate 325 mg b.i.d. 8. Metoprolol tartrate 50 mg b.i.d. 9. Zofran 4 mg q.6 hours p.r.n. nausea, vomiting. 10. MiraLAX 17 g daily. 11. Docusate senna 2 tabs b.i.d. p.r.n. constipation. 12. Zoloft 100 mg daily. 13. Tramadol 50 mg q.12 hours p.r.n. pain greater than 4. ALLERGIES: THE PATIENT IS NOTED TO BE ALLERGIC TO PENICILLIN, WHICH GIVES HER ITCH, ALEVE WHICH GIVES HER KIDNEY ISSUES, MOTRIN, WHICH GIVES HER KIDNEY PROBLEMS, HYDROCODONE, WHICH GIVES HER KIDNEY PROBLEMS AND MORPHINE GIVES HER ITCHING. FAMILY HISTORY: The patient's father at age 48 of [place]. The patient's mother at age 83, diagnosed with a stroke. The patient states all of her siblings have . Three brothers had lung cancer. Fourth brother in his 90s from heart failure. A sister at age 27 from leukemia. One sister of CHF and a 3rd sister of old age in her 90s. She has a son who is alive. She has 2daughters who are alive. She had 4 brothers, 3 sisters. SOCIAL HISTORY: The patient does not smoke. She does not use drugs. Her son lives with her. She is retired from a daycare center and . She has 3 pets. Two chihuahua and a boxer. REVIEW OF SYSTEMS: The patient denies fever, chills, night sweats, or weight change. She is little weak at this time from her fall. Denies headaches, head injury. Denies vision changes or hearing changes. Denies cough, cold, congestion, or wheezing. Denies chest pain, dyspnea on exertion, orthopnea, claudication, or edema. GI potter she denies nausea, vomiting, diarrhea, constipation, dysphagia,melena, hematemesis. GENITOURINARY: Denies urgency, frequency, nocturia, hematuria, or dysuria. Denies incontinence. MUSCULOSKELETAL: She has some right hip pain from her fracture, but does not hurt when she is lying in bed. She has generalized weakness. She is nonweightbearing on that right leg until Dr. Huitron gives us okay to better bear weight. SKIN: Denies rash or skin lesions. NEUROLOGIC: The patient has no focal deficits. PSYCHOLOGIC: The patient has a history of depression, which is in remission since she has been taking her medications. PHYSICAL EXAMINATION: GENERAL: This is a well-developed, well-nourished, very pleasant 84-year-old white female, who is alert, oriented x4 and has an outstanding and alert mind. HEENT: Normocephalic and nontraumatic cranium. Pupils are equally, round and reactive. Extraocular movements are intact. Nose and throat are slightly dry. NECK: Supple without masses, nodes, or bruits. CHEST: Clear to auscultation. No rales, rhonchi, wheezes are noted. HEART: Reveals a regular rate and rhythm without murmurs, gallops, or rubs. ABDOMEN: Soft, nontender without organomegaly. Normal bowel sounds are noted. No rebound or guarding is noted. : Deferred. EXTREMITIES: Reveal no clubbing, cyanosis, or edema. The patient does have minimal edema over her upper hip where the long compression screw is. She states that there are some external screws, but they are covered up by her knee immobilizer. ASSESSMENT & PLAN: 1. Ground level fall on Eliquis. 2. Right periprosthetic femoral fracture. 3. [id number] hyponatremia , continue to monitor. 4. Hypertension, continue to monitor 5. Chronic atrial fibrillation, which is rate controlled. 6. History of chronic kidney disease, stage 3 or 4. Monitor renal indices. 7. 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 Followed by Dr Lu Perez 8. Neuropathy. 9. Hypercholesterolemia. 10. Anxiety and depressive disorder. 11. Idiopathic generalized osteoporosis. 12. Vitamin D deficiency. 13. Fractured right periprosthetic hip. Job ID: [id number] [facility]
[2020-07-12] MEDS: Acetaminophen 325 MG TAB PO SCH ×4 (01:16→17:53)
[2020-07-12] MEDS: Ferrous Sulfate 325 MG TAB PO SCH ×2 (08:37→16:35)
[2020-07-12] MEDS: Cholecalciferol 1,000 UNITS (25 MCG) TAB PO SCH (08:37)
[2020-07-12] MEDS: Metoprolol Tartrate 50 MG TAB PO SCH ×2 (08:38→21:18)
[2020-07-12] MEDS: Apixaban 2.5 MG TAB PO SCH ×2 (08:38→21:18)
[2020-07-12] MEDS: Polyethylene Glycol 3350 17 GM Packet PO SCH (08:38)
[2020-07-12] MEDS: Famotidine 20 MG TAB PO SCH (08:38)
--- NOTE | 2020-07-12 10:25 | PRG ---
DATE OF SERVICE: 07/12/2020 SUBJECTIVE: This is a well-developed, well-nourished, very pleasant 84-year-old white female who was at home when she apparently twisted and fell. She had a resultant right-sided femoral shaft fracture. Dr. Huitron took her to the surgical suite and did a long compression sideplate with multiple screws and wires transfixing the proximal shaft fracture adjacent to the metallic stem alignment. It was noted to be a periprostatic fracture. She was stabilized and transferred to [facility] for PT, OT, and pain management. SUBJECTIVE: The patient states she had a good day yesterday, but she was kind of achy last night from all the therapy that she had yesterday. Otherwise, she states she is doing well. She has no concerns or complaints. OBJECTIVE: VITAL SIGNS: Today reveal blood pressure 147/67, pulse 74 to 76, respirations 18, O2 saturation 94% on room air, and T-max 97.0. GENERAL: This is a well-developed, well-nourished, very pleasant 84-year-old white female, in no apparent distress at this time. HEENT: Reveals normocephalic and nontraumatic cranium. Pupils are equally, round, and reactive. Extraocular movements are intact. Nose and throat are slightly dry. NECK: Supple without masses, nodes, or bruits. CHEST: Clear to auscultation. No rales, rhonchi, wheezes, or cough was noted. HEART: Reveals a chronic atrial fibrillation, but she is very rate controlled. No murmurs, gallops, or rubs are noted. ABDOMEN: Soft, nontender without organomegaly. Normal bowel sounds are noted in all 4 quadrants. No rebound or guarding was noted. : Deferred. EXTREMITIES: Reveal no clubbing or cyanosis. Some right-sided edema was noted, especially over the upper hip. She does have a knee immobilizer on also. ASSESSMENT: 1. Ground level fall, on Eliquis. 2. Right periprosthetic femur fracture. 3. Acute on chronic hyponatremia with a sodium yesterday of 130, which is up from 126. 4. Hypertension. 5. Chronic atrial fibrillation which is rate controlled. 6. History of chronic kidney disease stage 3 to 4 with a creatinine 1.06 yesterday. 7. Follicular lymphoma grade 3B with intraabdominal lymph nodes, followed by Dr. Perez. 8. Neuropathy. 9. Hypercholesterolemia. 10. Anxiety and depressive disorder. 11. Idiopathic generalized osteoporosis. 12. Vitamin D deficiency. 13. Fractured right periprosthetic hip femur fracture. PLAN: 1. Continue to monitor the patient's electrolytes closely, especially follow the sodium. 2. Continue to monitor the patient's blood pressure closely. 3. Monitor the patient for atrial fibrillation and RVR. 4. Monitor the patient's renal indices. 5. Stress ulcer prophylaxis. 6. Decubitus precautions. 7. DVT prophylaxis per Primary Service. 8. Physical Therapy and Occupational Therapy. Job ID: [id number]
[2020-07-12] MEDS: traMADol HCl 50 MG TAB PO PRN (21:17)
[2020-07-12] MEDS: Atorvastatin Calcium 10 MG TAB PO SCH (21:18)
[2020-07-13] MEDS: Acetaminophen 325 MG TAB PO SCH ×5 (00:04→23:15)
[2020-07-13] MEDS: Apixaban 2.5 MG TAB PO SCH ×2 (08:41→20:47)
[2020-07-13] MEDS: Famotidine 20 MG TAB PO SCH (08:41)
[2020-07-13] MEDS: Ferrous Sulfate 325 MG TAB PO SCH ×2 (08:41→16:00)
[2020-07-13] MEDS: Cholecalciferol 1,000 UNITS (25 MCG) TAB PO SCH (08:41)
[2020-07-13] MEDS: Metoprolol Tartrate 50 MG TAB PO SCH (08:41)
[2020-07-13] MEDS: Polyethylene Glycol 3350 17 GM Packet PO SCH (08:42)
[2020-07-13] MEDS ORDERED: Midodrine HCl 5 MG TAB PO SCH ×2 (11:45→15:00)
--- NOTE | 2020-07-13 12:50 | PRG ---
DATE OF SERVICE: 07/13/2020 SUBJECTIVE: Ms. Donald is a well-developed, well-nourished, pleasant 84-year-old white female, was home when she apparently twisted and fell. She had a resultant right-sided femoral shaft fracture, which was periprosthetic fracture. Dr. Huitron took her to the surgical suite and did a long compression sideplate with multiple screws, wires transfixing the proximal shaft fracture adjacent to the metallic stem alignment. Postoperatively, she did well, was transferred to [facility] for PT, OT, and pain management. The patient states she is doing well, but every time she gets up, she drops her blood pressure. They have given her exercises in bed. She becomes very orthostatic. We will decrease her metoprolol to 25 mg of metoprolol tartrate b.i.d. and will start her on midodrine 5 mg t.i.d. OBJECTIVE: VITAL SIGNS: Today reveal blood pressure ranges from 97/53 to 138/60, pulse 75, respirations 20, O2 saturation 96% to 98%, T-max 98.4. GENERAL: This is a well-developed, well-nourished, pleasant 84-year-old white female, in no apparent distress at this time. HEENT: Normocephalic and nontraumatic cranium. Pupils are equally round, reactive. Extraocular movements are intact. Nose and throat are slightly dry. NECK: Supple without masses, nodes, or bruits. CHEST: Clear to auscultation. No rales, rhonchi, or wheezes are heard. HEART: Regular rate and rhythm without murmurs, gallops, or rubs. The patient does have chronic atrial fibrillation, and at this time, it seems like it is controlled. ABDOMEN: Soft, nontender without organomegaly. Normal bowel sounds noted in all 4 quadrants. No rebound or guarding is noted. : Deferred. EXTREMITIES: No clubbing, cyanosis, or edema. Right-sided edema is noted in her right hip. Otherwise, her left is doing fine. The patient does have a knee immobilizer on. ASSESSMENT: 1. Orthostatic hypotension when the patient gets up. 2. Ground level fall, on Eliquis. 3. Right periprosthetic femur fracture, status post ORIF. 4. [id number] hyponatremia with sodium 130 with repeat labs tomorrow. 5. Hypertension. 6. Chronic atrial fibrillation, which is rate controlled. 7. History of chronic kidney disease, stage 3 to 4 with creatinine 1.06. 8. Follicular lymphoma grade 3B with intraabdominal lymph nodes followed by Dr. Perez. 9. Neuropathy. 10. Hypercholesterolemia. 11. Anxiety and depressive disorder. 12. Idiopathic generalized osteoporosis. 13. Vitamin D deficiency. PLAN: 1. Continue to monitor the patient's electrolytes closely with labs tomorrow. 2. Continue to monitor the patient's blood pressure. 3. With the patient's orthostasis, we will start her on midodrine 5 mg t.i.d. 4. We will decrease the patient's metoprolol to metoprolol tartrate 25 mg b.i.d. 5. Monitor the patient's renal indices tomorrow. 6. Stress ulcer prophylaxis. 7. Decubitus precautions. 8. DVT prophylaxis per Primary Service. 9. Physical therapy, occupational therapy. Job ID: [id number]
[2020-07-13] MEDS: Midodrine HCl 5 MG TAB PO SCH ×2 (15:58→23:15)
[2020-07-13] MEDS: Atorvastatin Calcium 10 MG TAB PO SCH ×2 (20:45→20:48)
[2020-07-13] MEDS: Metoprolol Tartrate 25 MG TAB PO SCH (20:47)
[2020-07-13] MEDS: traMADol HCl 50 MG TAB PO PRN (20:47)
[2020-07-14] MEDS: Acetaminophen 325 MG TAB PO SCH ×4 (05:41→23:53)
[2020-07-14] MEDS: Ferrous Sulfate 325 MG TAB PO SCH ×2 (08:39→17:00)
[2020-07-14] MEDS: Cholecalciferol 1,000 UNITS (25 MCG) TAB PO SCH (08:40)
[2020-07-14] MEDS: Apixaban 2.5 MG TAB PO SCH ×2 (08:40→20:29)
[2020-07-14] MEDS: Famotidine 20 MG TAB PO SCH (08:40)
[2020-07-14] MEDS: Metoprolol Tartrate 25 MG TAB PO SCH ×2 (08:41→20:30)
[2020-07-14] MEDS: Midodrine HCl 5 MG TAB PO SCH ×3 (08:41→20:30)
[2020-07-14] MEDS: Polyethylene Glycol 3350 17 GM Packet PO SCH (08:41)
--- NOTE | 2020-07-14 09:22 | PRG ---
DATE OF SERVICE: 07/14/2020 SUBJECTIVE: Ms. Donald is an 84-year-old white female, patient of mine, who apparently twisted and fell at home. She had a resultant significant right-sided femoral shaft fracture, which was periprosthetic fracture. Dr. Huitron took her to the surgical suite and did a long compression sideplate with multiple screws, wires, transfixing the proximal shaft fracture adjacent with a metallic stem alignment. Postoperatively, she did fairly well, was transferred to [facility] for PT and OT, pain management, and nonweightbearing until she sees Dr. Huitron. Subjectively, the patient states she slept so well and is actually doing very well. She had a lot of therapy yesterday and was somewhat tired. Her blood pressure has been somewhat low and we did decrease her metoprolol to 25 b.i.d. and started her on Midrin 5 mg t.i.d. OBJECTIVE: VITAL SIGNS: Today reveal blood pressure this morning was 109/57. Yesterday evening, it was 144/61. Pulse 70 to 74, respirations 18, O2 saturation 95% to 96% on room air. T-max 97.0. GENERAL: This is a well-developed, well-nourished, pleasant, 84-year-old white female, in no apparent distress at this time. HEENT: Normocephalic and nontraumatic cranium. Pupils are equal, round, and reactive. Extraocular movements are intact. Nose and throat are dry. NECK: Supple without masses, nodes, or bruits. CHEST: Clear to auscultation. No rales, rhonchi, or wheezes are heard. HEART: Reveals a regular rate and rhythm without murmurs, gallops, or rubs. The patient does have chronic atrial fibrillation and she is still rate controlled. ABDOMEN: Soft and nontender. Normal bowel sounds noted in all 4 quadrants. No rebound or guarding is noted. : Deferred. EXTREMITIES: Reveal no clubbing, cyanosis, or edema. The right hip remains with edema, but somewhat less. The patient does have a knee immobilizer below that. ASSESSMENT: 1. Orthostatic hypotension when the patient gets up, presently on midodrine and decreased metoprolol. 2. On Eliquis as anticoagulant for atrial fibrillation. 3. Right periprosthetic femur fracture status post open reduction and internal fixation. 4. Acute on chronic hyponatremia with sodium of 130 with labs repeated today. Her sodium was not back yet. 5. Hypertension. 6. Chronic atrial fibrillation, rate controlled. 7. Chronic kidney disease, stage 3 to 4. Creatinine is 1.06. 8. Follicular lymphoma grade 3B with intraabdominal lymph nodes followed by Dr. Perez. 9. Neuropathy. 10. Hypercholesterolemia. 11. Anxiety and depressive disorder. 12. Idiopathic generalized osteoporosis. 13. Vitamin D deficiency. 14. Generalized weakness. PLAN: 1. Labs are pending this morning. 2. Continue to monitor the patient's blood pressure closely. 3. Continue with midodrine for orthostatic hypotension. 4. Continue decreased metoprolol 25 b.i.d. 5. Continue to monitor the patient's renal indices. 6. Stress ulcer prophylaxis. 7. Decubitus precautions. 8. DVT prophylaxis with Eliquis. 9. Physical therapy and occupational therapy. Job ID: [id number]
[2020-07-14] MEDS: traMADol HCl 50 MG TAB PO PRN (20:28)
[2020-07-15 04:08] VITALS: BMI 22.9
[2020-07-15] MEDS: Acetaminophen 325 MG TAB PO SCH ×3 (05:36→17:06)
[2020-07-15] MEDS: Apixaban 2.5 MG TAB PO SCH ×2 (08:26→21:30)
[2020-07-15] MEDS: Cholecalciferol 1,000 UNITS (25 MCG) TAB PO SCH (08:26)
[2020-07-15] MEDS: Famotidine 20 MG TAB PO SCH (08:26)
[2020-07-15] MEDS: Ferrous Sulfate 325 MG TAB PO SCH ×2 (08:26→17:06)
[2020-07-15] MEDS: Metoprolol Tartrate 25 MG TAB PO SCH ×2 (08:27→21:30)
[2020-07-15] MEDS: Midodrine HCl 5 MG TAB PO SCH ×3 (08:27→21:30)
[2020-07-15] MEDS: Polyethylene Glycol 3350 17 GM Packet PO SCH (08:27)
--- NOTE | 2020-07-15 09:49 | PRG ---
DATE OF SERVICE: 07/15/2020 SUBJECTIVE: Ms. Donald is an 84-year-old patient of mine, who twisted and fell at home. She had a resultant significant right-sided femoral shaft fracture, which was a periprosthetic fracture. Dr. Huitron took her to the surgical suite and did a long compression sideplate with multiple screws, wires, transfixing the proximal shaft fracture with the adjacent metallic stem alignment. Postoperatively, she did well, transferred to [facility] for PT, OT, and pain management. She is nonweightbearing until she sees Dr. Huitron. The patient states she slept really well and I actually went to wake her up this morning. She states she is eating well. She states she feels a lot better with less pain. OBJECTIVE: VITAL SIGNS: Reveal blood pressure this morning was 121/58, pulse 70 to 80, respirations 18 to 21, O2 saturation 95% to 96% on room air, T-max 98.7. GENERAL: This is a well-developed, thin, white female, in no apparent distress at this time. HEENT: Reveals normocephalic and nontraumatic cranium. Pupils are equally round and reactive. Extraocular movements are intact. Nose and throat are still slightly dry. NECK: Supple without masses, nodes, or bruits. CHEST: Clear to auscultation. No rales, rhonchi, wheezes, or cough is heard. HEART: Reveals a regular rate and rhythm without murmurs, gallops, or rubs. The patient does have chronic atrial fibrillation, but she is still rate controlled. ABDOMEN: Soft and nontender. Normal bowel sounds are noted in all 4 quadrants. No rebound or guarding is noted. : Deferred. EXTREMITIES: Reveal no clubbing, cyanosis, or edema. Right hip remains somewhat edematous, but has less pain, and less swelling is noted. The patient does have a knee immobilizer. ASSESSMENT: 1. Orthostatic hypotension when the patient gets up. The patient is on midodrine and we did decrease her metoprolol. 2. Anticoagulation with Eliquis for her atrial fibrillation. 3. Right periprosthetic femur fracture, status post open reduction and internal fixation by Dr. Huitron. 4. Acute on chronic hyponatremia with sodium of 130, to be repeated tomorrow. 5. Hypertension. 6. Chronic atrial fibrillation. 7. Rate control. 8. Chronic kidney disease, stage 3 to 4 with last creatinine of 1.06. 9. Follicular lymphoma, grade 3B with intraabdominal lymph nodes, followed by Dr. Perez. 10. Neuropathy. 11. Hypercholesterolemia. 12. Anxiety and depressive disorder. 13. Idiopathic generalized osteoporosis. 14. Vitamin D deficiency. 15. Generalized weakness. PLAN: 1. The patient will have labs tomorrow. 2. Continue to monitor the patient's blood pressure closely. 3. Continue with midodrine for orthostatic hypotension. 4. Decreased metoprolol to 25 mg b.i.d. 5. Continue to monitor the patient's renal indices. 6. Stress ulcer prophylaxis. 7. Decubitus precautions. 8. DVT prophylaxis with Eliquis. 9. Physical therapy and occupational therapy. Job ID: [id number]
[2020-07-15] MEDS: Atorvastatin Calcium 10 MG TAB PO SCH (21:30)
[2020-07-16] MEDS: Acetaminophen 325 MG TAB PO SCH ×4 (00:55→17:30)
[2020-07-16 05:16] LABS: Hemoglobin 8.1 g/dL (12.0-16.0); Mean Corpuscular HGB CONC 32.3 g/dL (32.0-36.0); Mean Corpuscular Hemoglobin 29.4 pg (27.0-31.0); RBC Distribution Width 15.3 % (11.5-14.5); Red Blood Cell (RBC) Count 2.75 mill/uL (4.20-5.40); White Blood Cell (WBC) Count 33.9 thou/uL (4.8-10.8)
[2020-07-16 05:17] LABS: #Neutrophils 27.8 thou/uL (1.40-6.50); %Basophils 0.6 % (0.0-1.0); %Eosinophils 1.6 % (0.0-10.0); %Lymphocytes 6.6 % (21.0-51.0); %Monocytes 9.3 % (0.0-10.0); %Neutrophils 81.9 % (42.0-75.0); Manual Diff?? NO; Mean Platelet Volume 5.9 fL (7.4-10.4); Platelet Count 508 thou/uL (130-400)
[2020-07-16 05:18] LABS: #Basophils 0.2 thou/uL (0.0-0.2); #Eosinphils 0.5 thou/uL (0.0-0.7); #Lymphocytes 2.2 thou/uL (1.20-3.40); #Monocytes 3.2 thou/uL (0.11-0.59)
[2020-07-16 05:28] LABS: Carbon Dioxide 23 mmol/L (23-31)
[2020-07-16 05:31] LABS: ALT (SGPT) 18 U/L (8-55); AST (SGOT) 41 U/L (5-34); Albumin 2.5 g/dL (3.4-4.8); Alkaline Phosphatase 80 U/L (40-110); Anion Gap 13 mmol/L (10-20); BUN (Urea Nitrogen) 20 mg/dL (9.8-20.1); Bilirubin, Total 0.7 mg/dL (0.2-1.2); Calc. Creatinine Clearance 32 mL/min (70-130); Calcium 8.2 mg/dL (7.8-10.44); Chloride 97 mmol/L (98-107); Estimated GFR-MDRD 40; Globulin 2.2 g/dL (2.4-3.5); Glucose 104 mg/dL (83-110); Potassium 3.8 mmol/L (3.5-5.1); Protein, Total 4.7 g/dL (6.0-8.3); Sodium 129 mmol/L (136-145)
[2020-07-16] MEDS: Famotidine 20 MG TAB PO SCH (08:20)
[2020-07-16] MEDS: Metoprolol Tartrate 25 MG TAB PO SCH ×2 (08:20→21:07)
[2020-07-16] MEDS: Midodrine HCl 5 MG TAB PO SCH ×3 (08:20→21:07)
[2020-07-16] MEDS: Ferrous Sulfate 325 MG TAB PO SCH ×2 (08:20→17:30)
[2020-07-16] MEDS: Cholecalciferol 1,000 UNITS (25 MCG) TAB PO SCH (08:20)
[2020-07-16] MEDS: Apixaban 2.5 MG TAB PO SCH ×2 (08:20→21:07)
[2020-07-16] MEDS: Polyethylene Glycol 3350 17 GM Packet PO SCH (08:26)
--- NOTE | 2020-07-16 10:35 | PRG ---
DATE OF SERVICE: 07/16/2020 SUBJECTIVE: Ms. Donald is an 84-year-old white female, twisted and fell at home and had a resultant right-sided femoral shaft fracture. Dr. Huitron took her to the surgical suite, did a long compression plate along with multiple screws and wires transfixing the proximal shaft fracture with adjacent metallic stem alignment. Postoperatively, she did well. This morning, she states that she is having abdominal pain whenever she sits up. Her white count was also increased to 33,000 today. We will repeat labs tomorrow. We will continue present therapy. She has also been a little orthostatic, is on midodrine. We will do a KUB and a lateral decubitus x-ray. PHYSICAL EXAMINATION: VITAL SIGNS: This morning reveal blood pressure 113/54, pulse 70 to 80, respirations 18, O2 saturations 95% on room air. T-max 98.3. GENERAL: This is a well-developed, well-nourished, very pleasant white female, in no apparent distress at this time. HEENT: Reveals normocephalic and nontraumatic cranium. Pupils equally round and reactive. Extraocular movements are intact. Nose and throat are slightly dry. NECK: Supple without masses, nodes, or bruits. CHEST: Clear to auscultation. No rales, no rhonchi, no wheezes are heard. HEART: Reveals a regular rate, in controlled rhythm. She does have chronic atrial fibrillation. She is still rate controlled. ABDOMEN: Soft, nontender without organomegaly. The patient does have some mild mid epigastric or mid periumbilical pain, but not much. Normal bowel sounds are noted in all 4 quadrants. No rebound or guarding is noted. : Deferred. EXTREMITIES: Reveal no clubbing, cyanosis, or edema. The right hip remains slightly edematous with less pain. X-rays reviewed. The patient does have her on a knee immobilizer. ASSESSMENT: 1. Abdominal pain. 2. Leukocytosis up to 33,000. 3. Orthostatic hypotension, presently on midodrine. 4. Anticoagulation with Eliquis for atrial fibrillation. 5. Right periprosthetic femur fracture, status post open reduction and internal fixation by Dr. Huitron. 6. Acute on chronic hyponatremia with a sodium of 129. 7. Hypertension. 8. Chronic atrial fibrillation. 9. Rate control. 10. Chronic kidney disease, stage 3 to 4 with creatinine of 1.26. 11. Follicular lymphoma, grade 3B with intraabdominal lymph nodes, followed by Dr. Perez. 12. Neuropathy. 13. Hypercholesterolemia. 14. Anxiety and depressive disorder. 15. Idiopathic generalized osteoporosis. 16. Vitamin D deficiency. 17. Generalized weakness. PLAN: 1. Repeat labs tomorrow morning. 2. Two-view abdominal x-rays including KUB and lateral decubitus. 3. Continue to monitor the patient's blood pressure. 4. Continue midodrine for orthostatic hypotension. 5. Decrease metoprolol to 25 mg b.i.d. 6. Continue to monitor the patient's renal indices. 7. Stress ulcer prophylaxis. 8. Decubitus precautions. 9. DVT prophylaxis with Eliquis. 10. Physical therapy and occupational therapy. Job ID: [id number]
--- NOTE | 2020-07-16 11:55 | RAD ---
TWO VIEW ABDOMEN: Supine and decubitus views obtained. INDICATION: Abdominal pain. FINDINGS: Bowel gas pattern unremarkable. Scattered stool and gas in the colon. Small bowel gas pattern is un remarkable. No mass effect or abnormal calcification. No evidence of free air identified. IMPRESSION: Unremarkable bowel gas pattern. POS: AH
[2020-07-16] MEDS: Atorvastatin Calcium 10 MG TAB PO SCH (21:07)
[2020-07-17] MEDS: Acetaminophen 325 MG TAB PO SCH ×5 (01:47→23:01)
[2020-07-17 03:05] LABS: Bilirubin Negative (Negative); Blood, Urine Negative (Negative); Clarity Clear (Clear); Glucose, Urine (Dipstick) Negative (Negative); Ketone, Urine Negative (Negative); Leukocyte Small (Negative); Nitrite Negative (Negative); Protein, Urine (Dipstick) 30 mg/dL (Neg-Trace); Specific Gravity, Urine 1.015 (1.005-1.030); Urobilinogen 0.2 mg/dL (Less than 2); pH, Urine 5.5 (5.0-9.0)
[2020-07-17 03:07] LABS: Bacteria/HPF None Seen HPF (None Seen); Calcium Oxalate Crystals 1+ HPF (None Seen); RBC/HPF 0-3 HPF (0-3)
[2020-07-17 05:28] LABS: Anion Gap 11 mmol/L (10-20); BUN (Urea Nitrogen) 23 mg/dL (9.8-20.1); Calc. Creatinine Clearance 31 mL/min (70-130); Calcium 8.8 mg/dL (7.8-10.44); Carbon Dioxide 25 mmol/L (23-31); Chloride 96 mmol/L (98-107); Estimated GFR-MDRD 40; Glucose 99 mg/dL (83-110); Potassium 3.8 mmol/L (3.5-5.1); Sodium 128 mmol/L (136-145)
[2020-07-17 05:32] LABS: #Basophils 0.6 thou/uL (0.0-0.2); #Eosinphils 0.4 thou/uL (0.0-0.7); #Lymphocytes 1.9 thou/uL (1.20-3.40); #Monocytes 2.9 thou/uL (0.11-0.59); %Basophils 1.6 % (0.0-1.0); %Monocytes 7.7 % (0.0-10.0); %Neutrophils 84.6 % (42.0-75.0); Hemoglobin 9.1 g/dL (12.0-16.0); Manual Diff?? NO; Mean Corpuscular HGB CONC 31.7 g/dL (32.0-36.0); Mean Corpuscular Hemoglobin 29.1 pg (27.0-31.0); Mean Corpuscular Volume 91.9 fL (78.0-98.0); Platelet Count 560 thou/uL (130-400); RBC Distribution Width 15.1 % (11.5-14.5); Red Blood Cell (RBC) Count 3.12 mill/uL (4.20-5.40); White Blood Cell (WBC) Count 37.8 thou/uL (4.8-10.8)
[2020-07-17] MEDS ORDERED: Acetaminophen 325 MG TAB ONE ×3 (06:43→12:34)
[2020-07-17] MEDS ORDERED: traMADol HCl 50 MG TAB PO PRN (09:00)
[2020-07-17] MEDS: Polyethylene Glycol 3350 17 GM Packet PO SCH (09:12)
[2020-07-17] MEDS: Midodrine HCl 5 MG TAB PO SCH ×3 (09:12→20:09)
[2020-07-17] MEDS: Apixaban 2.5 MG TAB PO SCH ×2 (09:12→20:09)
[2020-07-17] MEDS: Cholecalciferol 1,000 UNITS (25 MCG) TAB PO SCH (09:12)
[2020-07-17] MEDS: Famotidine 20 MG TAB PO SCH (09:12)
[2020-07-17] MEDS: Ferrous Sulfate 325 MG TAB PO SCH ×2 (09:13→17:19)
[2020-07-17] MEDS: Metoprolol Tartrate 25 MG TAB PO SCH ×2 (09:13→20:09)
[2020-07-17] MEDS ORDERED: Acetaminophen/Codeine 30-300mg Tablet ONE (11:36)
--- NOTE | 2020-07-17 12:10 | PRG ---
DATE OF SERVICE: 07/17/2020 SUBJECTIVE: Ms. Donald is a well-developed, very pleasant 84-year-old white female, who twisted and fell and resulted in left-sided femoral shaft fracture. Dr. Huitron took her to the surgical suite and did a long compression plate along with multiple screws and wires to transfix it to the proximal shaft fracture. This is also adjacent to the metallic stem because this was a periprosthetic fracture. Postoperatively, she has done very well. This morning, she states she is having a little less abdominal pain than yesterday. We did a flat plate and lateral of her abdomen, it was absolutely normal. She states she is not very hungry and not wanting to eat very much. Her white count was 33,000, up from 12,000, and her white count today is 33,000. She has no signs or symptoms of infection or sepsis. We did check her urinalysis, this was unremarkable. 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 Mino Perez. She has no significant abdominal pain anywhere. Her leg is not red, warm, inflamed, or infected. She has no cough or cold or congestion or clearing of her throat. We will nonetheless still repeat a chest x-ray today to check that out. PHYSICAL EXAMINATION: GENERAL: This is a well-developed, well-nourished, pleasant, 84-year-old white female, in no apparent distress at this time. VITAL SIGNS: Blood pressure 114/56, pulse 78 to 82, respirations 20, O2 saturation 96% to 97% on room air, T-max 97.2. HEENT: Normocephalic and nontraumatic cranium. Pupils are equal, round, and reactive. Extraocular movements are intact. Nose and throat are slightly dry. NECK: Supple without masses, nodes, or bruits. CHEST: Clear to auscultation. No rales, no rhonchi, no wheezes. No cough is noted. HEART: Regular rate and rhythm, but she does have chronic atrial fibrillation. She is rate controlled. ABDOMEN: Soft and nontender. She has minimal epigastric or periumbilical pain today. Normal bowel sounds noted in all 4 quadrants. No rebound or guarding is noted. No CVA tenderness noted. : Deferred. EXTREMITIES: No clubbing, cyanosis, or edema. Right hip remains slightly edematous, but no pain. No redness is noted. No drainage. ASSESSMENT: 1. Leukocytosis up to 33,000. 2. Abdominal pain, pretty much resolved. 3. History of orthostatic hypotension. 4. Poor appetite at this time. 5. Anticoagulation with Eliquis for atrial fibrillation. 6. Right periprosthetic femur fracture, status post ORIF by Dr. Huitron. 7. [id number] hyponatremia with sodium of 128. 8. Hypertension. 9. Chronic atrial fibrillation, rate controlled. 10. Chronic kidney disease stage 3 to 4 with creatinine of 1.26. 11. Follicular lymphoma grade 3B with intraabdominal lymph nodes in the past, followed by Dr. Perez. 12. Neuropathy. 13. Hypercholesterolemia. 14. Anxiety and depressive disorder. 15. Idiopathic osteoporosis. 16. Vitamin D deficiency. 17. Generalized weakness. PLAN: 1. We will repeat labs tomorrow. 2. We will get a chest x-ray today. 3. Blood cultures x2 have been thus far unremarkable with no growth. 4. X-rays AP and lateral decubitus were absolutely normal. 5. Continue to follow the patient's blood pressure. 6. Metoprolol decreased to 25 b.i.d. 7. The patient is still on midodrine for blood pressure. 8. Continue to monitor the patient's renal indices. 9. Stress ulcer prophylaxis. 10. DVT prophylaxis with Eliquis. 11. Continue physical therapy and occupational therapy. Job ID: [id number]
--- NOTE | 2020-07-17 14:54 | RAD ---
XR Chest 1 View Portable History: Shortness of breath Comparison: Radiograph July 10, 2020 Findings: Improved aeration of the lung bases. Scarring both lower lungs. No pneumothorax. No acute osseous abnormality. Cardiac silhouette and mediastinal contours are similar. Impression: Improved aeration of the lung bases.
[2020-07-17] MEDS: Atorvastatin Calcium 10 MG TAB PO SCH (20:09)
[2020-07-18] MEDS: Acetaminophen 325 MG TAB PO SCH ×3 (05:16→17:45)
[2020-07-18 05:27] LABS: Anion Gap 11 mmol/L (10-20); BUN (Urea Nitrogen) 31 mg/dL (9.8-20.1); Calc. Creatinine Clearance 30 mL/min (70-130); Calcium 8.6 mg/dL (7.8-10.44); Chloride 96 mmol/L (98-107); Estimated GFR-MDRD 38; Glucose 116 mg/dL (83-110); Potassium 3.9 mmol/L (3.5-5.1); Sodium 130 mmol/L (136-145)
[2020-07-18 05:28] LABS: Carbon Dioxide 27 mmol/L (23-31)
[2020-07-18 05:29] LABS: Hemoglobin 9.2 g/dL (12.0-16.0); Mean Corpuscular HGB CONC 31.4 g/dL (32.0-36.0); Mean Corpuscular Volume 92.4 fL (78.0-98.0); Mean Platelet Volume 6.1 fL (7.4-10.4); Platelet Count 578 thou/uL (130-400); RBC Distribution Width 15.5 % (11.5-14.5); Red Blood Cell (RBC) Count 3.16 mill/uL (4.20-5.40); White Blood Cell (WBC) Count 49.7 thou/uL (4.8-10.8)
[2020-07-18 05:30] LABS: Lymphocytes 8 % (21-51); MDiff Complete? YES; Manual Diff?? YES; Monocytes 1 % (0-10); Neutrophil 91 % (42-75); RBC Morphology Normal
[2020-07-18] MEDS: Ferrous Sulfate 325 MG TAB PO SCH ×2 (08:05→17:45)
[2020-07-18] MEDS: Cholecalciferol 1,000 UNITS (25 MCG) TAB PO SCH (08:05)
[2020-07-18] MEDS: Apixaban 2.5 MG TAB PO SCH ×2 (08:05→20:31)
[2020-07-18] MEDS: Metoprolol Tartrate 25 MG TAB PO SCH ×2 (08:06→20:31)
[2020-07-18] MEDS: Polyethylene Glycol 3350 17 GM Packet PO SCH (08:06)
[2020-07-18] MEDS: Midodrine HCl 5 MG TAB PO SCH ×3 (08:06→20:31)
[2020-07-18] MEDS: Famotidine 20 MG TAB PO SCH (08:06)
--- NOTE | 2020-07-18 08:27 | PRG ---
DATE OF SERVICE: 07/18/2020 HISTORY OF PRESENT ILLNESS: Ms. Donald is a well-developed, well-nourished, 84-year-old white female, who was at home when she twisted and fell and had a left-sided femoral shaft fracture. It is a periprosthetic fracture right below her prosthetic hip replacement. She was taken to [facility], where she was seen by Dr. Huitron, who took her to the surgical suite. He did a long compression plate along with multiple screws and wires to transfix it to the proximal shaft. On x-ray, it looked excellent. Postoperatively, the patient is nonweightbearing and was transferred to inpatient rehab at [facility] for physical therapy and occupational therapy to teach her how to transfer, and for pain management. SUBJECTIVE: The patient states she is doing well, but her appetite is gone. She states when she eats, she has some upset stomach. She is not wanting to eat or drink, but we encouraged her and she does some. Her other problem is that her leukocytosis has increased. 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 I did contact Dr. Mino Perez yesterday and we discussed her case. She has absolutely no signs or symptoms of any type of infection. No fever. No redness and at her surgical site, a little bit of serous drainage, but today we tried to get a culture and there was no drainage at all. She has no redness and looks well healed. He felt that it was reactive and not some type of reaction with her beta cell lymphoma. The patient states she is feeling fine except for her fractured leg, which does not hurt immensely and she is not hungry. Her laboratory this morning revealed her white count has gone to 49,700. Her hemoglobin is increased to 9.2, hematocrit is increased to 29.2, and platelet count is 578,000, which is increased too. She does have increased neutrophils today at 91 and 8 lymphocytes. We have done two urines on her, which were unremarkable. Her chest x-ray is unremarkable. Visual exam of her right incision site this morning shows it has no redness at all. She does have a little bit evidence of serous drainage, but this morning when we tried to do a culture, we could express no drainage at all and the incision site looks clean and clear with absolutely no redness and no tenderness. PHYSICAL EXAMINATION: GENERAL: This is a well-developed, well-nourished, thin, white female, in no apparent distress at this time. She is alert and oriented x3. VITAL SIGNS: Reveal blood pressure this morning 115/56, pulse 78, respirations 18, O2 saturation 96% on room air, and T-max 98.2. HEENT: Reveals normocephalic and nontraumatic cranium. The pupils are equally round and reactive. Extraocular movements are intact. Nose and throat are slightly dry. NECK: Supple without masses, nodes, or bruits. CHEST: Clear to auscultation. No rales, no rhonchi, no wheezes are heard. HEART: Reveals that she has chronic atrial fibrillation, but she has a controlled rate and sounds regular this morning. Denies any shortness of breath or chest pain. ABDOMEN: Soft and nontender. She has minimal periumbilical pain only with deep palpation. Bowel sounds are all normal. She has no rebound or guarding. No CVA tenderness. : Unremarkable. She has had two urine tests, which were unremarkable. EXTREMITIES: Reveal no clubbing, cyanosis, or edema. The right hip is still slightly edematous, but has no pain over the incision site. No redness. She has had a little serous drainage because they have changed her dressing this morning, but none is able to be expressed at this time and we unwrap it again and try to get a culture. ASSESSMENT: 1. Leukocytosis of 47,000. 2. Abdominal pain only with deep palpation. 3. Nausea and poor appetite. 4. History of orthostatic hypotension. 5. Atrial fibrillation with anticoagulation with Eliquis. 6. Right periprosthetic femur fracture, status post open reduction and internal fixation by Dr. Huitron, in excellent position. 7. Acute on chronic hyponatremia, which is improved to 130 with increasing low salt in her diet and fluid restriction. 8. Hypertension, stable. 9. Chronic atrial fibrillation, rate controlled. 10. Chronic kidney disease, stage 3 to 4 with a creatinine of 1.3. 11. History of follicular lymphoma, grade 3B with intraabdominal lymph nodes in the past, followed by Dr. Perez and I did discuss her case with him yesterday. 12. Neuropathy, peripheral, which is her baseline. 13. Hypercholesterolemia. 14. Anxiety and depressive disorder. 15. Idiopathic osteoporosis. 16. Vitamin D deficiency. 17. Generalized weakness. PLAN: 1. Her labs came back this morning and I did order an amylase and lipase and liver enzymes just to make sure she does not have a pancreatitis. 2. Her blood cultures x2 so far are still unremarkable. 3. Urinalysis x2 is unremarkable. 4. Chest x-ray is unremarkable. 5. Abdominal x-ray is unremarkable. 6. Continue to follow the patient's blood pressure closely. 7. Metoprolol decreased to 25 mg b.i.d. 8. The patient will be started on midodrine for orthostasis when she gets up. 9. Stress ulcer prophylaxis. 10. DVT prophylaxis with Eliquis. 11. Continue PT and OT. 12. I did call the patient's daughter yesterday and left a message that she did not answer. I will try to contact her again today. 13. We will repeat labs again tomorrow. Job ID: [id number]
[2020-07-18 09:30] LABS: ALT (SGPT) 30 U/L (8-55); AST (SGOT) 58 U/L (5-34); Albumin 2.3 g/dL (3.4-4.8); Alkaline Phosphatase 93 U/L (40-110); Bilirubin, Direct 0.4 mg/dL (0.1-0.3); Bilirubin, Total 0.6 mg/dL (0.2-1.2); Protein, Total 4.5 g/dL (6.0-8.3)
[2020-07-18 11:19] LABS: #Basophils 0.2 thou/uL (0.0-0.2); #Eosinphils 0.3 thou/uL (0.0-0.7); #Lymphocytes 2.2 thou/uL (1.20-3.40); #Monocytes 3.6 thou/uL (0.11-0.59); #Neutrophils 43.4 thou/uL (1.40-6.50); %Basophils 0.5 % (0.0-1.0); %Eosinophils 0.6 % (0.0-10.0); %Lymphocytes 4.4 % (21.0-51.0); %Monocytes 7.2 % (0.0-10.0); %Neutrophils 87.3 % (42.0-75.0)
[2020-07-18] MEDS: Ondansetron ODT 4 MG TAB PO PRN (14:56)
[2020-07-18] MEDS: Atorvastatin Calcium 10 MG TAB PO SCH (20:31)
[2020-07-19] MEDS: Acetaminophen 325 MG TAB PO SCH ×3 (00:51→12:37)
[2020-07-19 05:30] LABS: %Basophils 0.6 % (0.0-1.0); %Eosinophils 0.2 % (0.0-10.0); %Lymphocytes 2.7 % (21.0-51.0); %Neutrophils 89.5 % (42.0-75.0); Hemoglobin 9.9 g/dL (12.0-16.0); Manual Diff?? NO; Mean Corpuscular HGB CONC 31.5 g/dL (32.0-36.0); Mean Corpuscular Hemoglobin 29.1 pg (27.0-31.0); Mean Corpuscular Volume 92.4 fL (78.0-98.0); Mean Platelet Volume 6.1 fL (7.4-10.4); Platelet Count 658 thou/uL (130-400); RBC Distribution Width 15.3 % (11.5-14.5); Red Blood Cell (RBC) Count 3.41 mill/uL (4.20-5.40); White Blood Cell (WBC) Count 62.9 thou/uL (4.8-10.8)
[2020-07-19 05:31] LABS: #Basophils 0.4 thou/uL (0.0-0.2); #Eosinphils 0.1 thou/uL (0.0-0.7); #Lymphocytes 1.7 thou/uL (1.20-3.40); #Monocytes 4.4 thou/uL (0.11-0.59); #Neutrophils 56.3 thou/uL (1.40-6.50)
[2020-07-19 05:34] LABS: Anion Gap 13 mmol/L (10-20)
[2020-07-19 05:35] LABS: Carbon Dioxide 25 mmol/L (23-31)
[2020-07-19 05:54] LABS: Albumin 2.3 g/dL (3.4-4.8); BUN (Urea Nitrogen) 47 mg/dL (9.8-20.1); Bilirubin, Total 0.6 mg/dL (0.2-1.2); Calc. Creatinine Clearance 19 mL/min (70-130); Calcium 8.6 mg/dL (7.8-10.44); Chloride 95 mmol/L (98-107); Estimated GFR-MDRD 22; Glucose 124 mg/dL (83-110); Potassium 4.2 mmol/L (3.5-5.1); Protein, Total 4.2 g/dL (5.8-8.1); Sodium 129 mmol/L (136-145)
[2020-07-19 05:56] LABS: ALT (SGPT) 37 U/L (8-55); AST (SGOT) 64 U/L (5-34); Alkaline Phosphatase 97 U/L (40-110)
[2020-07-19] MEDS ORDERED: Sodium Chloride 0.9% 10 ML ONE ×2 (08:52→10:00)
[2020-07-19] MEDS: Ferrous Sulfate 325 MG TAB PO SCH (09:22)
[2020-07-19] MEDS: Cholecalciferol 1,000 UNITS (25 MCG) TAB PO SCH (09:23)
[2020-07-19] MEDS: Apixaban 2.5 MG TAB PO SCH (09:23)
[2020-07-19] MEDS: Famotidine 20 MG TAB PO SCH (09:23)
[2020-07-19] MEDS: Midodrine HCl 5 MG TAB PO SCH (09:25)
[2020-07-19] MEDS: Metoprolol Tartrate 25 MG TAB PO SCH (09:25)
[2020-07-19] MEDS: Polyethylene Glycol 3350 17 GM Packet PO SCH (09:26)
[2020-07-19] MEDS: Ondansetron ODT 4 MG TAB PO PRN (09:26)
[2020-07-19] MEDS ORDERED: Sodium Chloride 0.9% 500 ML IV SCH (09:30)
[2020-07-19] MEDS ORDERED: Sodium Chloride 0.9% 1,000 ML IV SCH (09:30)
[2020-07-19] MEDS ORDERED: Meropenem 0.5 GM in Sodium Chloride 0.9% 100 ML IVPB SCH (10:00)
[2020-07-19 13:10] VITALS: TEMP 97
[2020-07-19 13:45] VITALS: BP 117/57
--- NOTE | 2020-07-20 10:01 | DIS ---
DATE OF ADMISSION: 07/10/2020 DATE OF DISCHARGE: 07/19/2020 HISTORY OF PRESENT ILLNESS: Ms. Odilon morales is a well-developed, well-nourished, thin 84-year-old white female, who was at home when she twisted and fell and landed on her left side. She had a femoral shaft fracture, which was periprosthetic. She was taken to [facility] where she was seen by Dr. Madsen who took her to the surgical suite. He did a long compression plate with multiple screws and wires transfixed to the proximal shaft. X-ray looks excellent. Postoperatively, patient was nonweightbearing for many days and was sent to [facility] swing bed for physical therapy and occupational therapy. The patient initially did very well, but started having some leukocytosis without any symptoms. She had a workup including blood cultures x2, urine cultures x2, chest x-ray and abdominal x-ray. Her blood cultures were always unremarkable. Her urine cultures revealed minimal E. coli and Proteus. The patient's surgical site looked excellent and had no redness at all, but had a little serous drainage. That was also cultured which grew out bacillus non- anthrax, but minimal. The morning of discharge the patient was seen and actually states she did not eat anything the night before and the day before, because she was just nauseated. She had no significant pain. She had no diarrhea day before. The patient was encouraged to eat and drink bland foods and was given a dose of Zofran. She was able to eat some toast and a piece of cheese and drink little liquids. For lunch, she ate probably 25% of her meal and then promptly started throwing up and retching. Then she became tachycardic along with slightly hypotensive. We felt that the patient needed further evaluation and so therefore arrangements were made for the patient to be transferred to [facility]. I did talk with the doctors there. Subjectively, the patient basically was stable without problems until she started vomiting. It was noted that her creatinine from Thursday was 1.3, increased to 2.08 since she was not drinking. She was given a bolus of normal saline and started on IV fluids. We did discuss that if she felt worse, we would transfer her to [facility]. I did talk with her daughter Kitty about those plans. PHYSICAL EXAMINATION: GENERAL: This is a well-developed, well-nourished, thin white female, complaining of nausea and absolutely no appetite to eat or drink. She was alert and oriented x3. HEENT: Reveals normocephalic, nontraumatic cranium. Pupils are equally round and reactive. Extraocular movements are intact. NOSE AND THROAT: Dry. NECK: Supple without masses, nodes, or bruits. CHEST: Clear to auscultation. No rales, no rhonchi, no wheezes were noted. No cough was noted at all. HEART: Revealed a rate controlled chronic atrial fibrillation. She denies any shortness of breath or chest pain. ABDOMEN: Soft, but some tenderness, periumbilical with deep palpation. The patient states she has been nauseated and states that when she eats she gets increased pain. She had no rebound or guarding. No CVA tenderness. GENITOURINARY: Deferred. EXTREMITIES: Reveal no clubbing, cyanosis, or edema. The right hip was examined again with no redness. ASSESSMENT: 1. Leukocytosis with a white count of 62,000. Abdominal pain, periumbilical at this time. 2. Nausea with very little appetite. 3. Atrial fibrillation with anticoagulation with Eliquis. Right periprosthetic femur fracture status post open reduction and internal fixation done by Dr. Huitron. 4. [id number] hyponatremia, stable. 5. Rate controlled, atrial fibrillation. 6. 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 7. History of follicular lymphoma, grade IIIb with intraabdominal lymph nodes in the past, followed by Dr. Perez. I did discuss with him about her leukocytosis. 8. Peripheral neuropathy. 9. Hypercholesterolemia. 10. Anxiety and depressive disorder. 11. Idiopathic osteoporosis. 12. Vitamin D deficiency. 13. Generalized weakness. Right after lunch, the patient did develop nausea and vomiting with a significant tachycardia, drop in her blood pressure and I did talk with transferring doctor over at [facility] about transferring the patient for further evaluation. MEDICICATIONS: Have been reviewed. PLAN: 1. The patient will be transferred to [facility]. CT scans have not been done and the patient has been receiving bolus and IV fluids. We will continue to monitor her electrolytes closely and we will do a CT scan with contrast, if her creatinine decreases and her GFR increases to 35. 2. Her GFR has gone from 32 down to 22 in 24 hour period. 3. The patient is being transferred expediently to [facility] for further evaluation and treatment. Job ID: [id number] MTDD
== END 2020-07-19 14:50 | disposition short-term general hospital (02) | DRG 815 ==
LOC: NAV ACUTE 18:42
PROVIDERS: ADMIT Family Medicine; ATTEND Family Medicine
DX: D72.829 Elevated white blood cell count, unspecified (principal); E87.1 Hypo-osmolality and hyponatremia; C85.90 Non-Hodgkin lymphoma, unspecified, unspecified site; I48.20 Chronic atrial fibrillation, unspecified; I95.9 Hypotension, unspecified; G62.9 Polyneuropathy, unspecified; E78.00 Pure hypercholesterolemia, unspecified; F41.9 Anxiety disorder, unspecified; F32.9 Major depressive disorder, single episode, unspecified; M81.8 Other osteoporosis without current pathological fracture; E55.9 Vitamin D deficiency, unspecified; I95.1 Orthostatic hypotension; I12.9 Hypertensive chronic kidney disease with stage 1 through stage 4 chronic kidney disease, or unspecified chronic kidney disease; N18.3 Chronic kidney disease, stage 3 (moderate); Z90.49 Acquired absence of other specified parts of digestive tract; Z88.0 Allergy status to penicillin; Z88.1 Allergy status to other antibiotic agents; Z79.01 Long term (current) use of anticoagulants; S72.8X1D Other fracture of right femur, subsequent encounter for closed fracture with routine healing; Z88.5 Allergy status to narcotic agent
CPT/HCPCS: 71045; 74019; 80048; 80053; 80076; 81001; 82150; 83690; 83880; 84134; 85025; 87040; 87070; 87086; 87205; J2185; J3490; J7030; J7050; Q0162